=== PATIENT | female | born 1965 | race Caucasian/White ===

== ENCOUNTER 2017-08-13 05:39 | Emergency (ER) | payer SELFPAY ==
[~2017-08-13] VITALS: Ht 152.4 cm; Wt 59.0 kg
[~2017-08-13 05:39] MED LIST: ALBUTEROL SULF8.5 GM INH; AMOXICILLIN500 MG ORAL; ATIVAN0.5 MG ORAL; AZITHROMYCIN250 MG ORAL; CLARITIN10 M2 ORAL; IBUPROFEN600 MG ORAL; NKM; PEPCID20 MG ORAL; PROMETHAZINE-C118 M1 ORAL; RANITIDINE HCL150 MG ORAL; TYLENOL EXTRA500 MG ORAL; TYLENOL325 MG ORAL; ZOFRAN ODT4 MG ORAL
[2017-08-13] MEDS ORDERED: NKM (05:51)
--- NOTE | 2017-08-13 06:21 | Emergency Room Report ---
History of Present Illness General Chief Complaint: Upper Respiratory Illness Source: Patient (Cristela Lira M.D.) Present Illness HPI 52-year-old female presents with fever, chills, cough, vomiting, headache for 3 days. Cough is productive with clear phlegm. Patient is barely eating or drinking and feels very dehydrated. States that she has been vomiting a lot but will not quantify. Denies any abdominal pain or diarrhea.. No recent travel. did not get a flu shot this year. (Cristela Lira M.D.) Allergies: Coded Allergies: IBUPROFEN (Verified Allergy, Unknown, 08/13/17) Patient History Past Medical History: see triage record Past Surgical History: none Pertinent Family History: none Last Menstrual Period: jul Reviewed Nursing Documentation: PMH: Agreed, PSxH: Agreed (Cristela Lira M.D. ) Nursing Documentation-PMH Past Medical History: No Stated History (Cristela Lira M.D.) Review of Systems All Other Systems: negative except mentioned in HPI (Cristela Lira M.D.) Physical Exam Vital Signs Date Time Temp Pulse Resp B/P (MAP) Pulse Ox O2 Delivery O2 Flow Rate FiO2 08/13/17 05:50 100.7 85 20 111/62 98 Room Air 100.8 Sp02 EP Interpretation: reviewed, normal General Appearance: alert, GCS 15, moderate distress Head: normocephalic, atraumatic Eyes: bilateral eye normal inspection, bilateral eye PERRL, bilateral eye EOMI ENT: normal voice, dry mucus membranes Neck: normal inspection, full range of motion, supple, no meningismus Respiratory: normal inspection, lungs clear, normal breath sounds, no respiratory distress, no retraction, no wheezing, speaking full sentences, chest symmetrical Cardiovascular #1: normal inspection, regular rate, rhythm, normal capillary refill Cardiovascular #2: 2+ radial (R), 2+ radial (L) Gastrointestinal: non tender, soft, non-distended, no guarding, other - nontender thoughout abdomen Musculoskeletal: normal inspection, back normal, normal range of motion, non- tender Neurologic: normal inspection, alert, oriented x3, responsive, motor strength/ tone normal, sensory intact, normal gait, speech normal Psychiatric: normal inspection, judgement/insight normal, memory normal Skin: normal inspection, normal color, no rash, warm/dry, well hydrated, normal turgor (Cristela Lira M.D.) Medical Decision Making Diagnostic Impression: Primary Impression: Influenza A ER Course 52-year-old female p/w fever, chills, headache, cough DDX: Viral URI / pneumonia / UTI Plan: Labs, fluids, Zofran ER course: Pt stable in ED, remains nontoxic appearing, no sob. Tolerating PO Signed out patient to -Pending labs and pending final disposition Please note that this Emergency Department Report was dictated using [employer] science professor technology software, occasionally this can lead to erroneous entry secondary to interpretation by the dictation equipment Rhythm Strip EP Interpretation: Yes Rate: 77 Rhythm: NSR, no PVCs, no ectopy EKG Diagnostic Results EP Interpretation: Yes Rate: normal Rhythm: NSR ST Segments: No acute changes ASA given to patient: No (Cristela Lira M.D.) ER Course Hospital Course 52-year-old F presents to ED complaining of fever + bodyaches + cough Clinical course Patient initially seen and evaluated by Dr. Lira; please see her note for full history and physical labs - no leukocytosis, hb/hct stable, electrolytes ok, ua negative. influenza A + CXR - no acute infiltrate Discussed findings with patient. Patient appears nontoxic, stable vitals. Given Tamiflu here. Safe for discharge with outpatient therapy Diagnosis - influenza A Stable and discharged home with prescriptions for tamiflu, promethazine/codeine , tylenol. drink plenty of fluids. Instructed to followup with PMD. Return to ED if symptoms recur or worsen Labs Test 08/13/17 06:00 08/13/17 06:30 Urine Color Pale yellow Urine Appearance Clear Urine pH 8 (4.5-8.0) Urine Specific [place] 1.010 (1.005-1.035) Urine Protein 1+ (NEGATIVE) Urine Glucose (UA) Negative (NEGATIVE) Urine Ketones Negative (NEGATIVE) Urine Occult Blood 5+ (NEGATIVE) Urine Nitrite Negative (NEGATIVE) Urine Bilirubin Negative (NEGATIVE) Urine Urobilinogen 1 MG/DL (0.0-1.0) Urine Leukocyte Esterase 3+ (NEGATIVE) Urine RBC 20-30 /HPF (0 - 2) Urine WBC 5-10 /HPF (0 - 2) Urine Squamous Epithelial Cells Few /LPF (NONE/OCC) Urine Bacteria Few /HPF (NONE) White Blood Count 4.2 K/UL (4.8-10.8) Red Blood Count 4.36 M/UL (4.20-5.40) Hemoglobin 14.3 G/DL (12.0-16.0) Hematocrit 41.3 % (37.0-47.0) Mean Corpuscular Volume 95 FL (80-99) Mean Corpuscular Hemoglobin 32.7 PG (27.0-31.0) Mean Corpuscular Hemoglobin Concent 34.5 G/DL (32.0-36.0) Red Cell Distribution Width 11.2 % (11.6-14.8) Platelet Count 136 K/UL (150-450) Mean Platelet Volume 9.2 FL (6.5-10.1) Neutrophils (%) (Auto) 81.6 % (45.0-75.0) Lymphocytes (%) (Auto) 9.0 % (20.0-45.0) Monocytes (%) (Auto) 8.4 % (1.0-10.0) Eosinophils (%) (Auto) 0.4 % (0.0-3.0) Basophils (%) (Auto) 0.6 % (0.0-2.0) Sodium Level 135 MMOL/L (136-145) Potassium Level 3.6 MMOL/L (3.5-5.1) Chloride Level 102 MMOL/L (98-107) Carbon Dioxide Level 26 MMOL/L (21-32) Anion Gap 7 mmol/L (5-15) Blood Urea Nitrogen 6 mg/dL (7-18) Creatinine 0.8 MG/DL (0.55-1.30) Estimat Glomerular Filtration Rate > 60 mL/min (>60) Glucose Level 111 MG/DL (74-106) Lactic Acid Level 1.20 mmol/L (0.66-2.22) Calcium Level 9.1 MG/DL (8.5-10.1) Total Bilirubin 0.6 MG/DL (0.2-1.0) Aspartate Amino Transf (AST/SGOT) 34 U/L (15-37) Alanine Aminotransferase (ALT/SGPT) 31 U/L (12-78) Alkaline Phosphatase 51 U/L (46-116) Troponin I 0.000 ng/mL (0.000-0.056) Total Protein 7.1 G/DL (6.4-8.2) Albumin 3.7 G/DL (3.4-5.0) Globulin 3.4 g/dL Albumin/Globulin Ratio 1.1 (1.0-2.7) (BENNIE WILLS M.D.) Chest X-Ray Diagnostic Results Chest X-Ray Diagnostic Results : Chest X-Ray Ordered: Yes # of Views/Limited/Complete: 1 View Indication: Other - cough EP Interpretation: Yes Interpretation: no consolidation, no effusion, no pneumothorax, no acute cardiopulmonary disease Impression: No acute disease Electronically Signed by: Electronically signed by Bennie Wills MD (BENNIE WILLS M.D.) Last Vital Signs Date Time Temp Pulse Resp B/P (MAP) Pulse Ox O2 Delivery O2 Flow Rate FiO2 08/13/17 05:50 100.7 85 20 111/62 98 Room Air 100.8 (Cristela Lira M.D.) Status: improved (BENNIE WILLS M.D.) Disposition: HOME, SELF-CARE Condition: Stable Scripts Acetaminophen* (TYLENOL EXTRA STRENGTH*) 500 Mg Tablet 500 MG ORAL Q8H Y for Prn Headache/Temp > 101, #30 TAB 0 Refills Prov: BENNIE WILLS M.D. 08/13/17 Codeine/Promethazine Hcl* (PROMETHAZINE-CODEINE SYRUP*) 118 Ml Syrup 5 ML ORAL Q6H Y for For Cough, #118 ML 0 Refills Prov: BENNIE WILLS M.D. 08/13/17 Oseltamivir Phosphate (Tamiflu) 75 Mg Capsule 75 MG ORAL TWICE A DAY for 5 Days, CAP Prov: BENNIE WILLS M.D. 08/13/17 Cristela Lira M.D. Aug 13, 2017 06:21 BENNIE WILLS M.D. Aug 13, 2017 08:03
[2017-08-13 06:28] LABS: APPEARANCE,URINE CLEAR; BILIRUBIN, URINE NEGATIVE (NEGATIVE); COLOR,URINE PALE YELLOW; GLUCOSE, URINE (UA) NEGATIVE (NEGATIVE); KETONES,URINE NEGATIVE (NEGATIVE); LEUKOCYTE ESTERASE ,URINE 3+ (NEGATIVE); NITRITE,URINE NEGATIVE (NEGATIVE); PH,URINE 8 (4.5-8.0); PROTEIN,URINE 1+ (NEGATIVE); UROBILINOGEN,URINE 1 MG/DL (0.0-1.0)
[2017-08-13 07:06] LABS: BASOPHILS % (AUTO) 0.6 % (0.0-2.0); EOSINOPHILS % (AUTO) 0.4 % (0.0-3.0); HEMATOCRIT 41.3 % (37.0-47.0); HEMOGLOBIN 14.3 G/DL (12.0-16.0); MEAN CORPUSCULAR VOLUME 95 FL (80-99); MONOCYTES % (AUTO) 8.4 % (1.0-10.0); NEUTROPHILS % (AUTO) 81.6 % (45.0-75.0); PLATELET COUNT 136 K/UL (150-450); RED BLOOD COUNT 4.36 M/UL (4.20-5.40); RED CELL DISTRIBUTION WIDTH 11.2 % (11.6-14.8); WHITE BLOOD COUNT 4.2 K/UL (4.8-10.8)
[2017-08-13 07:17] LABS: ANION GAP 7 mmol/L (5-15); BLOOD UREA NITROGEN 6 mg/dL (7-18); CALCIUM 9.1 MG/DL (8.5-10.1); CARBON DIOXIDE 26 MMOL/L (21-32); CHLORIDE 102 MMOL/L (98-107); CREATININE 0.8 MG/DL (0.55-1.30); POTASSIUM 3.6 MMOL/L (3.5-5.1); SODIUM 135 MMOL/L (136-145)
[2017-08-13 07:21] LABS: ALANINE AMINOTRANSFERASE 31 U/L (12-78); ALBUMIN 3.7 G/DL (3.4-5.0); ALBUMIN/GLOBULIN RATIO 1.1 (1.0-2.7); ALKALINE PHOSPHATASE 51 U/L (46-116); ASPARTATE AMINO TRANSFERASE 34 U/L (15-37); BILIRUBIN,TOTAL 0.6 MG/DL (0.2-1.0)
[2017-08-13 07:44] VITALS: BP 96/44
[2017-08-13] MEDS ORDERED: Oseltamivir 75mg cap ORAL ONE (07:45)
[2017-08-13] MEDS ORDERED: TYLENOL EXTRA500 MG ORAL (07:50)
[2017-08-13] MEDS ORDERED: PROMETHAZINE-C118 M1 ORAL (07:50)
[2017-08-13] MEDS ORDERED: TAMIFLU75 MG ORAL (07:50)
[2017-08-13 08:03] VITALS: BP 96/44
[2017-08-13] MEDS ORDERED: Lidocaine 2% Visc 15ml soln ORAL ONE (08:15)
--- NOTE | 2017-08-13 10:45 | Diagnostic Imaging Report ---
Indication: Dyspnea Comparison: None A single view chest radiograph was obtained. Findings: Cardiomediastinal appearance is within normal limits for age. Pulmonary vascularity is appropriate. The diaphragmatic contour is smooth and costophrenic angles are sharp. No pleural effusions are identified. The bones are unremarkable. Impression: No acute findings
--- NOTE | 2017-08-25 16:59 | Cardiology Report ---
APPROVED REPORT EKG Measurement Heart [id number] Normal sinus rhythm Incomplete right bundle branch block Borderline ECG
== END 2017-08-13 08:02 | disposition home or self-care (01) ==
LOC: EMR 07:11
DX: J10.1 Influenza due to other identified influenza virus with other respiratory manifestations (principal); Z88.6 Allergy status to analgesic agent
CPT/HCPCS: 36415; 71045; 80053; 81003; 83605; 84484; 85025; 86710; 87040; 93005; 96361; 96374; 99284; J2405

== ENCOUNTER 2019-08-09 09:01 | Day surgery (SDC) | payer BC ==
[2019-08-09] VITALS (9 sets, daily range): BP systolic 96–118; BP diastolic 59–70
[~2019-08-09] VITALS: Ht 162.6 cm; Wt 63.5 kg
[~2019-08-09 09:01] MED LIST changes: +LR 1000ml 1,000 ML IVLG SCH; +TAMIFLU75 MG ORAL
[2019-08-09] MEDS ORDERED: LR 1000ml 1,000 ML IVLG SCH (10:08)
--- NOTE | 2019-08-09 10:10 | Anethesia Preoperative Eval ---
Anesthesia Pre-op PMH/ROS General Date of Evaluation: Aug 09, 2019 Time of Evaluation: 10:31 Anesthesiologist: ning ASA Score: ASA 2 Mallampati Score Class I : Soft palate, uvula, fauces, pillars visible Class II: Soft palate, uvula, fauces visible Class III: Soft palate, base of uvula visible Class IV: Only hard plate visible Mallampati Classification: Class II Surgeon: mahad Diagnosis: colon screening Surgical Procedure: colonoscopy Anesthesia History: none Family History: no anesthesia problems Allergies: Coded Allergies: IBUPROFEN (Verified Allergy, Unknown, 08/13/17) Medications: see eMAR Patient NPO?: Yes Anesthesia Pre-op Phys. Exam Physician Exam Last Vital Signs Date Time Temp Pulse Resp B/P (MAP) Pulse Ox O2 Delivery O2 Flow Rate FiO2 08/09/19 10:37 97.7 58 18 96/67 98 Room Air Constitutional: NAD Neurologic: CN 2-12 intact Cardiovascular: RRR Respiratory: CTA Gastrointestinal: S/NT/ND Airway Exam Mallampati Score: Class II MO: full Neck: flexible TMD: 2fb ROM: full Anesthesia Pre-op A/P Labs Labs Test 08/09/19 09:15 Urine HCG, Qualitative Negative (NEGATIVE) Urine Test Test 08/09/19 09:15 Urine HCG, Qualitative Pending Studies Pre-op Studies: EKG - sinus bradycardia Risk Assessment & Plan Assessment: asa2 Plan: mac Status Change Before Surgery: No Pre-Antibiotics Drug: Katie Martins MD Aug 09, 2019 10:10
[2019-08-09] MEDS ORDERED: fentaNYL 100 mcg/2 mL IV PRN (10:15)
[2019-08-09] MEDS ORDERED: DiphenhydrAMINE 50mg/ml Inj IVP PRN (10:15)
[2019-08-09] MEDS ORDERED: Midazolam 2mg/2ml Inj IVP PRN (10:15)
[2019-08-09] MEDS ORDERED: Atropine Inj 1mg/10ml Syr IV PRN (10:15)
--- NOTE | 2019-08-09 10:18 | Pre-Procedure Note/Attestation ---
Pre-Procedure Note/Attestation Complete Prior to Procedure Planned Procedure: not applicable Procedure Narrative: colonoscopy Indications for Procedure Pre-Operative Diagnosis: screening Attestation I attest that I discussed the nature of the procedure; its benefits; risks and complications; and alternatives (and the risks and benefits of such alternatives ), prior to the procedure, with the patient (or the patient's legal lead customer service representative). I attest that, if there was a reasonable possibility of needing a blood transfusion, the patient (or the patient's legal lead customer service representative) was given the [facility] standardized written summary, pursuant to the [place] Blood Safety Act ([place] Health and Safety Code # 1645, as amended). I attest that I re-evaluated the patient just prior to the surgery and that there has been no change in the patient's H&P, except as documented below: Jaime Cooley MD Aug 09, 2019 10:18
--- NOTE | 2019-08-09 10:19 | Short Stay Surgery H&P ---
History of Present Illness History of Present Illness Chief Complaint screening colon HPI Rita Durbin is a 54 year old female who was admitted on for Screening Patient History Allergies: Coded Allergies: IBUPROFEN (Verified Allergy, Unknown, 08/13/17) PAST MEDICAL HISTORY: (1) Anxiety (2) Gastritis (3) Bronchitis (4) Elevated liver enzymes Medication History Scheduled Albuterol Sulfate* (Albuterol Sulfate Mdi*), 2 PUFF INH Q4H Albuterol Sulfate* (Albuterol Sulfate Mdi*), 2 PUFF INH Q6H Amoxicillin* (Amoxil*), 500 MG ORAL THREE TIMES A DAY Azithromycin* (Zithromax*), 250 MG ORAL DAILY Famotidine (Pepcid), 20 MG ORAL DAILY Loratadine (Claritin), 10 MG ORAL DAILY Lorazepam* (Ativan*), 0.5 MG ORAL THREE TIMES A DAY No Known Medications* (NKM - No Known Medications*), 0 ., (Reported) No Known Medications* (NKM - No Known Medications*), 0 ., (Reported) Oseltamivir Phosphate (Tamiflu), 75 MG ORAL TWICE A DAY Ranitidine Hcl* (Zantac*), 150 MG ORAL TWICE A DAY Scheduled PRN Acetaminophen (Tylenol), 650 MG ORAL Q6H PRN for Prn Pain/Headache/Temp > 101 Acetaminophen* (Tylenol Extra Strength*), 500 MG ORAL Q8H PRN for Prn Headache/ Temp > 101 Acetaminophen* (Tylenol Extra Strength*), 500 MG ORAL Q8H PRN for Prn Headache/ Temp > 101 Codeine/Promethazine Hcl* (Promethazine-Codeine Syrup*), 5 ML ORAL Q4H PRN for For Cough Codeine/Promethazine Hcl* (Promethazine-Codeine Syrup*), 5 ML ORAL Q6H PRN for For Cough Ibuprofen* (Motrin*), 600 MG ORAL Q8H PRN for For Pain Ondansetron Odt* (Zofran Odt*), 4 MG ORAL Q6H PRN for Nausea & Vomiting Review of Systems Cardiovascular: Reports: no symptoms Respiratory: Reports: no symptoms Skeletal: Reports: no symptoms Gastrointestinal: Reports: gastro esophageal reflux disease Genitourinary: Reports: no symptoms Neurologic: Reports: no symptoms Endocrine: Reports: no symptoms Hematologic: Reports: no symptoms Physical Exam Labs Laboratory Tests Test 08/09/19 09:15 Urine HCG, Qualitative Negative (NEGATIVE) Skin: normal HENT: normal Heart: normal Lungs: normal Abdomen: normal Extremities: normal Plan Plan of Care colonoscopy Attestation Are the patient's medical conditions optimized for surgery? Attestation Response: yes Jaime Cooley MD Aug 09, 2019 10:19
[2019-08-09] MEDS ORDERED: Lidocaine 1% MPF 10mg/ml 5ml ONE (10:30)
[2019-08-09] MEDS ORDERED: LR 1000ml ONE (10:30)
[2019-08-09] MEDS ORDERED: Propofol 200mg/20ml IV ONE (10:30)
--- NOTE | 2019-08-09 10:58 | Endoscopy Procedure Note ---
Endoscopy Procedure Note General Indication for Procedure: screening Procedures Performed: colonoscopy Operative Findings/Diagnosis: hemorrhoids Specimen: none Pt Tolerated Procedure Well: Yes Estimated Blood Loss: none Anesthesia Anesthesiologist: moy Anesthesia: MAC Inserted Devices Implant(s) used?: No Quality Quality of Bowel Preparation: Good Did scope reach the cecum?: Yes Was there any complications?: No GI Core Measures 50 yrs or older w/o bx or poly: No 10yrs. F/U recommended: Yes If not recommended, why?: Above average risk 18 years or older w/prev. colo: No Jaime Cooley MD Aug 09, 2019 10:58
--- NOTE | 2019-08-09 12:19 | Immediate Post-Op Evaluation ---
Immediate Post-Op Evalulation Immediate Post-Op Evalulation Procedure: colonoscopy Date of Evaluation: Aug 09, 2019 Time of Evaluation: 11:12 IV Fluids: 300ml lr Blood Products: none Estimated Blood Loss: negligible Blood Pressure Systolic: 97 Blood Pressure Diastolic: 61 Pulse Rate: 54 Respiratory Rate: 18 O2 Sat by Pulse Oximetry: 100 Temperature (Fahrenheit): 97.7 Pain Score (1-10): 0 Nausea: No Vomiting: No Complications none Patient Status: awake, reacts, patent Hydration Status: adequate Drug: Katie Martins MD Aug 09, 2019 12:19
--- NOTE | 2019-08-09 12:20 | 48 Hour Post Anesthesia Eval ---
Post Anesthesia Evaluation Procedure: colonoscopy Date of Evaluation: Aug 09, 2019 Time of Evaluation: 11:14 Blood Pressure Systolic: 118 0: 70 Pulse Rate: 53 Respiratory Rate: 18 Temperature (Fahrenheit): 97.7 O2 Sat by Pulse Oximetry: 100 Airway: patent Nausea: No Vomiting: No Pain Intensity: 0 Hydration Status: adequate Cardiopulmonary Status: stable Mental Status/LOC: patient returned to baseline Post-Anesthesia Complications: none Follow-up care needed: N/A Katie Wild MD Aug 09, 2019 12:20
--- NOTE | 2019-08-09 14:45 | Procedure Note ---
DATE OF PROCEDURE: 08/09/2019 SURGEON: Jaime Cooley M.D. PROCEDURE: Colonoscopy. ANESTHESIA: Per Dr. Warner. INSTRUMENT: Olympus adult flexible colonoscope. INDICATIONS: Screening colonoscopy. REASON FOR PROCEDURE: The procedure, risks, benefits, and possible consequences, including hemorrhage, aspiration, perforation and infection, and alternative treatments, were explained to the patient/legal guardian by Dr. Jaime Cooley and the patient/legal guardian understood and accepted these risks. DESCRIPTION OF PROCEDURE: After informed consent was obtained and the patient was adequately sedated, first rectal examination was performed, which was positive for internal hemorrhoids. Then the scope was advanced from rectum into the cecum and then subsequently into terminal ileum. Quality of prep was good. The patient had evidence of diverticulosis scattered both in the right and left colon. No obvious mass, polyp, or any pathology was seen. Retroflexion of the rectum showed evidence of medium-sized nonbleeding internal hemorrhoids. The patient tolerated procedure very well without any complication. FINDINGS: 1. Normal colonoscopy examination up to the terminal ileum. 2. Scattered diverticulosis. 3. Internal hemorrhoids. RECOMMENDATIONS: 1. Treat for hemorrhoids if it becomes symptomatic. 2. Consider doing endoscopy if the patient has evidence of any epigastric or chronic GERD symptoms. 3. The patient to follow in the office for follow-up. 4. Repeat colonoscopy in 5 years. I want to thank, Dr. Jaime Euceda, for this kind referral. Jaime Cooley M.D. DR: Kristin JOB#: [id number] CC: Jaime Euceda M.D.
== END 2019-08-09 12:10 | disposition home or self-care (01) ==
LOC: GAS 09:01
DX: Z12.11 Encounter for screening for malignant neoplasm of colon (principal); K57.90 Diverticulosis of intestine, part unspecified, without perforation or abscess without bleeding; K64.8 Other hemorrhoids; F41.9 Anxiety disorder, unspecified; Z79.899 Other long term (current) drug therapy; K21.9 Gastro-esophageal reflux disease without esophagitis
CPT/HCPCS: 45378; 81025; 93005; J2704; J7120; 94003; 94150

== ENCOUNTER 2019-11-19 13:56 | Inpatient (IN) | payer BC ==
[~2019-11-19] VITALS: Ht 162.6 cm; Wt 65.5 kg
[~2019-11-19 13:56] MED LIST changes: -LR 1000ml 1,000 ML IVLG SCH
[2019-11-19 14:02] VITALS: BP 113/64
--- NOTE | 2019-11-19 14:02 | NUR ---
ED Nurse Note: Patient wheeled in to ED from home c/o severe low back pain x 4 days. [place] fall/ injury. Pt has hx of spinal disc problem. Pt is crying in pain. Facial grimacing noted. Stated that she is unable to feel her body. No SOB. VSS.
--- NOTE | 2019-11-19 14:16 | Emergency Room Report ---
History of Present Illness General Chief Complaint: Back Pain-No Injury Present Illness HPI 54 YO Female presents to the ED c/o 03/23 in severity progressive Lower back pain with lower abdominal cramping x4 days. Pt. was brought to ED by her son whom states she has been in bed for almost 4 days. Pt. reported she had subjective fever yesterday. Her son states she rarely even gets up to use the restroom and estimates once or twice. Pt. has been complaining of not being able to feel her body. and reports arms and legs. pt. can only walk and stand up with assistance. Pt. with hx of cervical disk disorder. she denies neck pain. She denies trauma or fall. She denies strenuous activities prior to onset of her symptoms. She denies dysuria or hematuria. Pt. reports intermittent paresthesias of the bilateral arms and legs. She denies incontinence of urine or bowels. She denies urinary retention. She denies nausea/vomiting. Reports decreased appetite. (Amelia Meier) Allergies: Coded Allergies: IBUPROFEN (Verified Allergy, Unknown, 08/13/17) COVID-19 Screening Contact w/high risk pt: No Recent Travel to affected area: No Experienced COVID-19 symptoms?: No COVID-19 Testing performed RIBBON TIER: No (Amelia Meier) Patient History Past Medical History: see triage record Past Surgical History: none Pertinent Family History: none Now: No Reviewed Nursing Documentation: PMH: Agreed; PSxH: Agreed (Amelia Meier) Nursing Documentation-PMH Hx Cardiac Problems: No Hx Cancer: No Hx Gastrointestinal Problems: Yes Hx Neurological Problems: No - disc, spine problem (Amelia Meier) Review of Systems All Other Systems: negative except mentioned in HPI (Amelia Meier) Physical Exam Vital Signs Date Time Temp Pulse Resp B/P (MAP) Pulse Ox O2 Delivery O2 Flow Rate FiO2 11/19/19 14:01 97.7 69 16 113/64 (80) 97 Room Air Sp02 EP Interpretation: reviewed, normal General Appearance: alert, GCS 15, non-toxic, moderate distress Head: normocephalic, atraumatic Eyes: bilateral eye normal inspection, bilateral eye PERRL ENT: hearing grossly normal, normal voice Neck: full range of motion Respiratory: lungs clear, normal breath sounds, speaking full sentences Cardiovascular #1: regular rate, rhythm Gastrointestinal: normal bowel sounds, soft, non-distended, no guarding, tenderness - TTP to lower abdomen diffusely. Rectal: deferred Musculoskeletal: normal range of motion, gait/station normal, tender - Lumbar paraspinal and midline TTP. Neurologic: alert, motor strength/tone normal, oriented x3, sensory intact, responsive, speech normal, grossly normal Psychiatric: judgement/insight normal Skin: no rash, normal color Lymphatic: no adenopathy (Amelia Meier) Medical Decision Making PA Attestation Dr. Conrad is my supervising Physician whom patient management has been discussed with. (Amelia Meier) Medicare Attestation Please refer to the initial note for the history exam and presentation CT imaging does show evidence of diverticulitis with what appears to be likely abscess formation patient will require IV antibiotics and surgical consultation with admission to the hospital (Andria Conrad DO) Diagnostic Impression: Primary Impression: Diverticulitis of intestine with abscess Qualified Codes: K57.20 - Diverticulitis of large intestine with perforation and abscess without bleeding ER Course 54 YO Female presents to the ED c/o 03/23 in severity progressive Lower back pain with lower abdominal cramping x4 days. Pt. was brought to ED by her son whom states she has been in bed for almost 4 days. Pt. reported she had subjective fever yesterday. Her son states she rarely even gets up to use the restroom and estimates once or twice. Pt. has been complaining of not being able to feel her body. and reports arms and legs. pt. can only walk and stand up with assistance. Pt. with hx of cervical disk disorder. she denies neck pain. She denies trauma or fall. She denies strenuous activities prior to onset of her symptoms. She denies dysuria or hematuria. Pt. reports intermittent paresthesias of the bilateral arms and legs. She denies incontinence of urine or bowels. She denies urinary retention. She denies nausea/vomiting. Reports decreased appetite. Ddx considered: Epidural abscess, fracture, sprain/strain, meningitis, spinal chord injury, sciatica, Pyelonephritis, renal calculi, intra-abdominal etiology just to name a few. Vital signs reviewed and are WNL during ED visit. Pt. is afebrile. Pt. does not demonstrate acute abdomen on exam. No saddle anesthesia noted, Pt. denies incontinence Neurovascular is intact ROM is limited due to pain ORDERS: -CBC:WNL -BMP: WNL -UA: Blood and RBc's, mild bacteria -CT Abd. Pelvis no contrast: "Diverticulitis with abscess formation " --- Per official radiology report- Please see report for specific details. INTERVENTIONS: - [place] 5mg PO -Lidoderm TP - Zosyn IV -Flagyl IV -Morphine 4mg IV pt. reports having acid reflux 1 hour s/p administration and reports this is a reaction she has w. morphine. - SURGICAL CONSULT: Dr. Gregory- contacted regarding pt. and CT imaging results. DISPOSITION: at this time pt. will be admitted to Dr. Polanco for diverticulitis and abscess formation Dr. Polanco agreed to admit the pt. and to continue pt. care management. Labs Test 11/19/19 14:20 11/19/19 14:28 Urine Color Pale yellow Urine Appearance Clear Urine pH 8 (4.5-8.0) Urine Specific [place] 1.010 (1.005-1.035) Urine Protein Negative (NEGATIVE) Urine Glucose (UA) Negative (NEGATIVE) Urine Ketones Negative (NEGATIVE) Urine Blood 3+ (NEGATIVE) Urine Nitrite Negative (NEGATIVE) Urine Bilirubin Negative (NEGATIVE) Urine Urobilinogen 1 MG/DL (0.0-1.0) Urine Leukocyte Esterase 1+ (NEGATIVE) Urine RBC 2-4 /HPF (0 - 2) Urine WBC 0-2 /HPF (0 - 2) Urine Squamous Epithelial Cells Few /LPF (NONE/OCC) Urine Bacteria Occasional /HPF (NONE) White Blood Count 8.7 K/UL (4.8-10.8) Red Blood Count 4.62 M/UL (4.20-5.40) Hemoglobin 14.6 G/DL (12.0-16.0) Hematocrit 41.1 % (37.0-47.0) Mean Corpuscular Volume 89 FL (80-99) Mean Corpuscular Hemoglobin 31.6 PG (27.0-31.0) Mean Corpuscular Hemoglobin Concent 35.5 G/DL (32.0-36.0) Red Cell Distribution Width 10.5 % (11.6-14.8) Platelet Count 192 K/UL (150-450) Mean Platelet Volume 8.8 FL (6.5-10.1) Neutrophils (%) (Auto) % (45.0-75.0) Lymphocytes (%) (Auto) % (20.0-45.0) Monocytes (%) (Auto) % (1.0-10.0) Eosinophils (%) (Auto) % (0.0-3.0) Basophils (%) (Auto) % (0.0-2.0) Differential Total Cells Counted 100 Neutrophils % (Manual) 76 % (45-75) Lymphocytes % (Manual) 16 % (20-45) Monocytes % (Manual) 7 % (1-10) Eosinophils % (Manual) 1 % (0-3) Basophils % (Manual) 0 % (0-2) Band Neutrophils 0 % (0-8) Platelet Estimate Adequate Platelet Morphology Normal Red Blood Cell Morphology Normal Sodium Level 138 MMOL/L (136-145) Potassium Level 3.9 MMOL/L (3.5-5.1) Chloride Level 101 MMOL/L (98-107) Carbon Dioxide Level 29 MMOL/L (21-32) Anion Gap 8 mmol/L (5-15) Blood Urea Nitrogen 11 mg/dL (7-18) Creatinine 0.7 MG/DL (0.55-1.30) Estimat Glomerular Filtration Rate > 60 mL/min (>60) Glucose Level 90 MG/DL (74-106) Calcium Level 9.3 MG/DL (8.5-10.1) (Amelia Meier) CT/MRI/US Diagnostic Results CT/MRI/US Diagnostic Results : Imaging Test Ordered: CT abdomen and Pelvis w/o Contrast Impression "Diverticulitis with abscess formation " --- Per official radiology report- Please see report for specific details. (Amelia Meier) Last Vital Signs Date Time Temp Pulse Resp B/P (MAP) Pulse Ox O2 Delivery O2 Flow Rate FiO2 11/19/19 14:02 97.7 69 16 113/64 97 Room Air (Amelia Meier) Disposition: ADMITTED INPATIENT Condition: Serious Physician Consult: Surgical: Dr. Gregory (Amelia Meier) Amelia Meier Nov 19, 2019 14:16 Andria Conrad DO Nov 19, 2019 16:09
--- NOTE | 2019-11-19 14:21 | NUR ---
ED Nurse Note: Urine collected and sent to lab.
[2019-11-19] MEDS ORDERED: HYDROcodone/Acetamin 5/325 tab ORAL ONE (14:30)
--- NOTE | 2019-11-19 14:30 | NUR ---
ED Nurse Note: IV line established. Blood specimen collected and sent to lab.
[2019-11-19 14:32] LABS: APPEARANCE,URINE CLEAR; BILIRUBIN, URINE NEGATIVE (NEGATIVE); COLOR,URINE PALE YELLOW; GLUCOSE, URINE (UA) NEGATIVE (NEGATIVE); KETONES,URINE NEGATIVE (NEGATIVE); LEUKOCYTE ESTERASE ,URINE 1+ (NEGATIVE); NITRITE,URINE NEGATIVE (NEGATIVE); PH,URINE 8 (4.5-8.0); PROTEIN,URINE NEGATIVE (NEGATIVE); UROBILINOGEN,URINE 1 MG/DL (0.0-1.0)
--- NOTE | 2019-11-19 14:40 | NUR ---
ED Nurse Note: Pt was taken to CT via [facility]. Accompanied by a tech.
[2019-11-19 14:47] LABS: HEMATOCRIT 41.1 % (37.0-47.0); HEMOGLOBIN 14.6 G/DL (12.0-16.0); MEAN CORPUSCULAR VOLUME 89 FL (80-99); PLATELET COUNT 192 K/UL (150-450); RED BLOOD COUNT 4.62 M/UL (4.20-5.40); RED CELL DISTRIBUTION WIDTH 10.5 % (11.6-14.8); WHITE BLOOD COUNT 8.7 K/UL (4.8-10.8)
--- NOTE | 2019-11-19 14:55 | NUR ---
ED Nurse Note: Pt returned from CT.
[2019-11-19 14:58] LABS: ANION GAP 8 mmol/L (5-15); BLOOD UREA NITROGEN 11 mg/dL (7-18); CALCIUM 9.3 MG/DL (8.5-10.1); CARBON DIOXIDE 29 MMOL/L (21-32); CHLORIDE 101 MMOL/L (98-107); CREATININE 0.7 MG/DL (0.55-1.30); POTASSIUM 3.9 MMOL/L (3.5-5.1); SODIUM 138 MMOL/L (136-145)
--- NOTE | 2019-11-19 15:58 | Diagnostic Imaging Report ---
EXAM: CT Abdomen and Pelvis Without Intravenous Contrast CLINICAL HISTORY: PAIN TECHNIQUE: Axial computed tomography images of the abdomen and pelvis without intravenous contrast. CTDI is 4.4 mGy and DLP is 326 mGy-cm. One or more of the following dose reduction techniques were used: automated exposure control, adjustment of the mA and/or kV according to patient size, use of iterative reconstruction technique. COMPARISON: No relevant prior studies available. FINDINGS: Lung bases: Left basilar atelectasis ABDOMEN: Liver: Unremarkable Gallbladder and bile ducts: No calcified stones. No ductal dilation. Pancreas: Unremarkable. Spleen: Unremarkable. Adrenals: Unremarkable. Kidneys and ureters: No renal calculi or obstructive changes. Stomach and bowel: Diverticulitis of the distal descending colon with surrounding inflammatory changes. No regular diverticulum measuring approximate 1 cm versus mottled collection with air and debris representing an abscess. No kaushik pneumoperitoneum. PELVIS: Appendix: Unremarkable appendix. Bladder: Unremarkable. Reproductive: Unremarkable. ABDOMEN and PELVIS: Intraperitoneal space: See above. Bones/joints: No acute fracture. Soft tissues: Unremarkable. Vasculature: Unremarkable. No abdominal aortic aneurysm. Lymph nodes: Small mesenteric and retroperitoneal nodes IMPRESSION: Diverticulitis of the distal descending colon with surrounding inflammatory changes. No regular diverticulum measuring approximate 1 cm versus mottled collection with air and debris representing an abscess. No kaushik pneumoperitoneum. <MYCVCSECTION> Communications: 11/19/19 16:10 Verify Receipt Verified receipt with MARITA Sanchez, given to Hardeep CASTILLO on 11/18 16:11 (-07:00)
[2019-11-19 16:00] VITALS: BP 118/70
[2019-11-19] MEDS ORDERED: VITAMIN D310 MCG ORAL (16:12)
[2019-11-19] MEDS ORDERED: Piperacillin/Tazobactam 2.25 GM in NS 110 ML IVPB ONE (16:15)
--- NOTE | 2019-11-19 16:20 | NUR ---
NURSE NOTES: Surgeon is at bedside. Plan of care discussed with patient. Orders entered by Dr. Gregory. Addendum: 11/19/19 at 1904 by ODALYS BOWDEN RN documented at wrong time, correct time: 18:20.
[2019-11-19] MEDS ORDERED: Morphine Sulfate 4mg/ml Inj (IV USE ONLY) ONE (16:21)
[2019-11-19] MEDS ORDERED: Morphine Sulfate 4mg/ml Inj (IV USE ONLY) IVP ONE (16:30)
--- NOTE | 2019-11-19 17:20 | NUR ---
ED Nurse Note: Pt c/o epigatsric pain, ERPA notified. Pepcid IV given as ordered.
--- NOTE | 2019-11-19 17:45 | NUR ---
ED Nurse Note: Report given to Lidia OCONNELL.
--- NOTE | 2019-11-19 18:00 | NUR ---
TRANSFER TO FLOOR: Patient transferred to [facility]. Report given to Lidia OCONNELL. Pt AAOx4, verbally responsive. Not in any distress. IV line on left AC 20g patent and intact. No skin issues. Med recon done. Swabs are sent. All belongings sent with the patient.
[2019-11-19 18:15] VITALS: BP 94/64
--- NOTE | 2019-11-19 18:15 | NUR ---
NURSE NOTES: Patient arrived on unit.Stable. C/o 8/10 pain in abdomen. Breathing is even and unlabored. Patient oriented to room, call light, and unit. Patient instructed to use call light for assistance, verbalized understanding. Patient's skin is c/d/i. All safety measures provided. All needs met at this time. WIll continue to monitor.
--- NOTE | 2019-11-19 18:26 | Consultation ---
History of Present Illness General Date patient seen: Nov 19, 2019 Reason for Hospitalization: Back Pain-No Injury Present Illness HPI this is a 54 year old female who presents to the ED at [facility] c/o 03/23 in severity progressive low back and lower abdominal cramping x4 days. Pt. was brought to ED by her son whom states she has been in bed for almost 4 days. subjective fevers. Her son states she rarely even gets up to use the restroom and estimates once or twice. Pt. has been complaining of not being able to feel her body. and reports arms and legs. pt. can only walk and stand up with assistance. Pt. with hx of cervical disk disorder. she denies neck pain. She denies trauma or fall. She denies strenuous activities prior to onset of her symptoms. She denies dysuria or hematuria. Pt. reports intermittent paresthesias of the bilateral arms and legs. She denies incontinence of urine or bowels. She denies urinary retention. She denies nausea/vomiting. Reports decreased appetite. CT noted diverticulitis. surgery called to evaluate and assist with care. Allergies: Coded Allergies: IBUPROFEN (Verified Allergy, Unknown, 08/13/17) COVID-19 Screening Contact w/high risk pt: No Recent Travel to affected area: No Experienced COVID-19 symptoms?: No Medication History Scheduled Albuterol Sulfate* (Albuterol Sulfate Mdi*), 2 PUFF INH Q4H Albuterol Sulfate* (Albuterol Sulfate Mdi*), 2 PUFF INH Q6H Amoxicillin* (Amoxil*), 500 MG ORAL THREE TIMES A DAY Azithromycin* (Zithromax*), 250 MG ORAL DAILY Famotidine (Pepcid), 20 MG ORAL DAILY Loratadine (Claritin), 10 MG ORAL DAILY Lorazepam* (Ativan*), 0.5 MG ORAL THREE TIMES A DAY No Known Medications* (NKM - No Known Medications*), 0 ., (Reported) No Known Medications* (NKM - No Known Medications*), 0 ., (Reported) Oseltamivir Phosphate (Tamiflu), 75 MG ORAL TWICE A DAY Ranitidine Hcl* (Zantac*), 150 MG ORAL TWICE A DAY Vitamin D (Vitamin D3), Unknown Dose ORAL DAILY, (Reported) Scheduled PRN Acetaminophen (Tylenol), 650 MG ORAL Q6H PRN for Prn Pain/Headache/Temp > 101 Acetaminophen* (Tylenol Extra Strength*), 500 MG ORAL Q8H PRN for Prn Headache/ Temp > 101 Acetaminophen* (Tylenol Extra Strength*), 500 MG ORAL Q8H PRN for Prn Headache/ Temp > 101 Codeine/Promethazine Hcl* (Promethazine-Codeine Syrup*), 5 ML ORAL Q4H PRN for For Cough Codeine/Promethazine Hcl* (Promethazine-Codeine Syrup*), 5 ML ORAL Q6H PRN for For Cough Ibuprofen (Motrin), 600 MG ORAL Q8H PRN for For Pain Ondansetron Odt* (Zofran Odt*), 4 MG ORAL Q6H PRN for Nausea & Vomiting Patient History Limited by: medical condition History Provided By: Patient, Medical Record, PMD Healthcare decision maker Resuscitation status Advanced Directive on File Past Medical/Surgical History Past Medical/Surgical History: (1) Pharyngitis (2) Viral syndrome (3) Leukocytopenia (4) Thrombocytopenia (5) Asthmatic bronchitis (6) Dyspepsia (7) Influenza A (8) Anxiety (9) Gastritis (10) Bronchitis (11) Elevated liver enzymes (12) Diverticulitis of intestine with abscess Review of Systems Review of Symptoms General ROS: no weight loss or fever Psychological ROS: no depression or mood changes, no memory loss Ophthalmic ROS: no visual changes or eye irritation ENT ROS: no nasal congestion, hearing loss, dizziness Allergy and Immunology ROS: no allergic symptoms or urticaria Hematological and Lymphatic ROS: no swollen glands, unusual bleeding or bruising Endocrine ROS: no polyuria, polydipsia, weight changes, temperature intolerance Respiratory ROS: no cough, shortness of breath, or wheezing Cardiovascular ROS: no chest pain or dyspnea on exertion Gastrointestinal ROS: abdominal pain, bright red blood in stool. Musculoskeletal ROS: no myalgias or arthralgias Neurological ROS: no TIA or stroke symptoms Dermatological ROS: no new or changing skin lesions, rashes or pruritis Physical Exam Physical Exam General appearance: alert, cooperative, no distress, appears stated age Head: Normocephalic, without obvious abnormality, atraumatic Eyes: conjunctivae/corneas clear. PERRL, EOM's intact. Fundi benign Throat: Lips, mucosa, and tongue normal. Teeth and gums normal Neck: supple, symmetrical, trachea midline, no adenopathy, thyroid: not enlarged, symmetric, no tenderness/mass/nodules, no carotid bruit and no JVD Lungs: clear to auscultation bilaterally Heart: regular rate and rhythm, S1, S2 normal, no murmur, click, rub or gallop Abdomen: soft,LLQ tender. Bowel sounds normal. No masses, no organomegaly Extremities: extremities normal, atraumatic, no cyanosis or edema Pulses: 2+ and symmetric Skin: Skin color, texture, turgor normal. No rashes or lesions Neurologic: Grossly normal Last 24 Hour Vital Signs Date Time Temp Pulse Resp B/P (MAP) Pulse Ox O2 Delivery O2 Flow Rate FiO2 11/19/19 18:00 97.7 71 19 121/74 99 Room Air 11/19/19 16:53 97.7 11/19/19 16:00 97.7 65 21 118/70 98 Room Air 11/19/19 15:01 97.7 11/19/19 14:02 97.7 69 16 113/64 97 Room Air 11/19/19 14:01 97.7 69 16 113/64 (80) 97 Room Air Laboratory Tests Test 11/19/19 14:20 11/19/19 14:28 Urine Color Pale yellow Urine Appearance Clear Urine pH 8 (4.5-8.0) Urine Specific [place] 1.010 (1.005-1.035) Urine Protein Negative (NEGATIVE) Urine Glucose (UA) Negative (NEGATIVE) Urine Ketones Negative (NEGATIVE) Urine Blood 3+ (NEGATIVE) H Urine Nitrite Negative (NEGATIVE) Urine Bilirubin Negative (NEGATIVE) Urine Urobilinogen 1 MG/DL (0.0-1.0) H Urine Leukocyte Esterase 1+ (NEGATIVE) H Urine RBC 2-4 /HPF (0 - 2) H Urine WBC 0-2 /HPF (0 - 2) Urine Squamous Epithelial Cells Few /LPF (NONE/OCC) Urine Bacteria Occasional /HPF (NONE) White Blood Count 8.7 K/UL (4.8-10.8) Red Blood Count 4.62 M/UL (4.20-5.40) Hemoglobin 14.6 G/DL (12.0-16.0) Hematocrit 41.1 % (37.0-47.0) Mean Corpuscular Volume 89 FL (80-99) Mean Corpuscular Hemoglobin 31.6 PG (27.0-31.0) H Mean Corpuscular Hemoglobin Concent 35.5 G/DL (32.0-36.0) Red Cell Distribution Width 10.5 % (11.6-14.8) L Platelet Count 192 K/UL (150-450) Mean Platelet Volume 8.8 FL (6.5-10.1) Neutrophils (%) (Auto) % (45.0-75.0) Lymphocytes (%) (Auto) % (20.0-45.0) Monocytes (%) (Auto) % (1.0-10.0) Eosinophils (%) (Auto) % (0.0-3.0) Basophils (%) (Auto) % (0.0-2.0) Differential Total Cells Counted 100 Neutrophils % (Manual) 76 % (45-75) H Lymphocytes % (Manual) 16 % (20-45) L Monocytes % (Manual) 7 % (1-10) Eosinophils % (Manual) 1 % (0-3) Basophils % (Manual) 0 % (0-2) Band Neutrophils 0 % (0-8) Platelet Estimate Adequate Platelet Morphology Normal Red Blood Cell Morphology Normal Sodium Level 138 MMOL/L (136-145) Potassium Level 3.9 MMOL/L (3.5-5.1) Chloride Level 101 MMOL/L (98-107) Carbon Dioxide Level 29 MMOL/L (21-32) Anion Gap 8 mmol/L (5-15) Blood Urea Nitrogen 11 mg/dL (7-18) Creatinine 0.7 MG/DL (0.55-1.30) Estimat Glomerular Filtration Rate > 60 mL/min (>60) Glucose Level 90 MG/DL (74-106) Calcium Level 9.3 MG/DL (8.5-10.1) Microbiology Date/Time Source Procedure Growth Status 11/19/19 17:52 Rectum Received Height (Feet): 5 Height (Inches): 4.00 Weight (Pounds): 145 Assessment/Plan Problem List: (1) Diverticulitis of intestine with abscess Assessment & Plan: 54 F abd pain , chronic back pain, nausea, emesis. LLQ pain 4 days. worsening labs noted CT as below acute diverticulitis. ?abscess small no acute surgical intervention at this time will monitor with serial abdominal exams npo bowel rest iv fluids iv abx am labs will follow with recs thank you ABDOMEN: Liver: Unremarkable Gallbladder and bile ducts: No calcified stones. No ductal dilation. Pancreas: Unremarkable. Spleen: Unremarkable. Adrenals: Unremarkable. Kidneys and ureters: No renal calculi or obstructive changes. Stomach and bowel: Diverticulitis of the distal descending colon with surrounding inflammatory changes. No regular diverticulum measuring approximate 1 cm versus mottled collection with air and debris representing an abscess. No kaushik pneumoperitoneum. PELVIS: Appendix: Unremarkable appendix. Bladder: Unremarkable. Reproductive: Unremarkable. ABDOMEN and PELVIS: Intraperitoneal space: See above. Bones/joints: No acute fracture. Soft tissues: Unremarkable. Vasculature: Unremarkable. No abdominal aortic aneurysm. Lymph nodes: Small mesenteric and retroperitoneal nodes IMPRESSION: Diverticulitis of the distal descending colon with surrounding inflammatory changes. No regular diverticulum measuring approximate 1 cm versus mottled collection with air and debris representing an abscess. No kaushik pneumoperitoneum. ICD Codes: K57.80 - Diverticulitis of intestine, part unspecified, with perforation and abscess without bleeding SNOMED: 730781618, [id number] Qualifiers: Qualified Codes: K57.20 - Diverticulitis of large intestine with perforation and abscess without bleeding Joseph Gregory Nov 19, 2019 18:26
[2019-11-19] MEDS ORDERED: Morphine Sulfate 4mg/ml Inj (IV USE ONLY) IVP PRN (18:30)
[2019-11-19] MEDS ORDERED: Morphine Sulfate 2mg/ml Inj(IV/IM USE ONLY) IVP PRN (18:30)
--- NOTE | 2019-11-19 19:36 | NUR ---
HAND-OFF: Report given to Shayla OCONNELL. Patient is stable.
--- NOTE | 2019-11-19 19:37 | NUR ---
NURSE NOTES: Received report from ANISH Nolasco. Patient in stable condition, sitting up in bed, alert and oriented. Bed in low position, locked, side rails up x2, call light within reach. IV in LAC intact and patent. Will start IVF presently per MD order. Will continue to monitor.
[2019-11-19 20:00] VITALS: BP 94/63
[2019-11-19] MEDS: Piperacillin/Tazobactam 3.375 GM in NS 110 ML IVPB SCH (22:04)
--- NOTE | 2019-11-19 22:14 | History & Physical ---
History and Physical History & Physicial 11/19/2019 CC; abd pain x 4 days Present Illness HPI 54 YO Female presents to the ED c/o 03/23 in severity progressive Lower back pain with lower abdominal cramping x4 days. Pt. was brought to ED by her son whom states she has been in bed for almost 4 days. Pt. reported she had subjective fever yesterday. Her son states she rarely even gets up to use the restroom and estimates once or twice. Pt. has been complaining of not being able to feel her body. and reports arms and legs. pt. can only walk and stand up with assistance. Pt. with hx of cervical disk disorder. she denies neck pain. She denies trauma or fall. She denies strenuous activities prior to onset of her symptoms. She denies dysuria or hematuria. Pt. reports intermittent paresthesias of the bilateral arms and legs. She denies incontinence of urine or bowels. She denies urinary retention. She denies nausea/vomiting. Reports decreased appetite. 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 Nursing Documentation-PMH Hx Cardiac Problems: No Hx Cancer: No Hx Gastrointestinal Problems: Yes Hx Neurological Problems: No - disc, spine problem Review of Systems All Other Systems: negative except mentioned in HPI Physical Exam Vital Signs Date Time Temp Pulse Resp B/P (MAP) Pulse Ox O2 Delivery O2 Flow Rate FiO2 11/19/19 14:01 97.7 69 16 113/64 (80) 97 Room Air Sp02 EP Interpretation: reviewed, normal General Appearance: alert, GCS 15, non-toxic, moderate distress Head: normocephalic, atraumatic Eyes: bilateral eye normal inspection, bilateral eye PERRL ENT: hearing grossly normal, normal voice Neck: full range of motion Respiratory: lungs clear, normal breath sounds, speaking full sentences Cardiovascular #1: regular rate, rhythm Gastrointestinal: normal bowel sounds, soft, non-distended, no guarding, + tenderness - TTP to lower abdomen diffusely. Rectal: deferred Musculoskeletal: normal range of motion, gait/station normal, tender - Lumbar paraspinal and midline TTP. Neurologic: alert, motor strength/tone normal, oriented x3, sensory intact, responsive, speech normal, grossly normal Psychiatric: judgement/insight normal Skin: no rash, normal color Labs Test 11/19/19 14:20 11/19/19 14:28 Urine Color Pale yellow Urine Appearance Clear Urine pH 8 (4.5-8.0) Urine Specific [place] 1.010 (1.005-1.035) Urine Protein Negative (NEGATIVE) Urine Glucose (UA) Negative (NEGATIVE) Urine Ketones Negative (NEGATIVE) Urine Blood 3+ (NEGATIVE) Urine Nitrite Negative (NEGATIVE) Urine Bilirubin Negative (NEGATIVE) Urine Urobilinogen 1 MG/DL (0.0-1.0) Urine Leukocyte Esterase 1+ (NEGATIVE) Urine RBC 2-4 /HPF (0 - 2) Urine WBC 0-2 /HPF (0 - 2) Urine Squamous Epithelial Cells Few /LPF (NONE/OCC) Urine Bacteria Occasional /HPF (NONE) White Blood Count 8.7 K/UL (4.8-10.8) Red Blood Count 4.62 M/UL (4.20-5.40) Hemoglobin 14.6 G/DL (12.0-16.0) Hematocrit 41.1 % (37.0-47.0) Mean Corpuscular Volume 89 FL (80-99) Mean Corpuscular Hemoglobin 31.6 PG (27.0-31.0) Mean Corpuscular Hemoglobin Concent 35.5 G/DL (32.0-36.0) Red Cell Distribution Width 10.5 % (11.6-14.8) Platelet Count 192 K/UL (150-450) Mean Platelet Volume 8.8 FL (6.5-10.1) Neutrophils (%) (Auto) % (45.0-75.0) Lymphocytes (%) (Auto) % (20.0-45.0) Monocytes (%) (Auto) % (1.0-10.0) Eosinophils (%) (Auto) % (0.0-3.0) Basophils (%) (Auto) % (0.0-2.0) Differential Total Cells Counted 100 Neutrophils % (Manual) 76 % (45-75) Lymphocytes % (Manual) 16 % (20-45) Monocytes % (Manual) 7 % (1-10) Eosinophils % (Manual) 1 % (0-3) Basophils % (Manual) 0 % (0-2) Band Neutrophils 0 % (0-8) Platelet Estimate Adequate Platelet Morphology Normal Red Blood Cell Morphology Normal Sodium Level 138 MMOL/L (136-145) Potassium Level 3.9 MMOL/L (3.5-5.1) Chloride Level 101 MMOL/L (98-107) Carbon Dioxide Level 29 MMOL/L (21-32) Anion Gap 8 mmol/L (5-15) Blood Urea Nitrogen 11 mg/dL (7-18) Creatinine 0.7 MG/DL (0.55-1.30) Estimat Glomerular Filtration Rate > 60 mL/min (>60) Glucose Level 90 MG/DL (74-106) Calcium Level 9.3 MG/DL (8.5-10.1) Assessment: diverticulitis with possible ? abscess abd pain hx cholecystectomy Nausea hx back pain PLAN: IVF IV abx per ID serial abd exam CT noted/reviewed GI/surgery f/u check LFTs pain control NPO antiemetics electrolyte replete as needed Masood Polanco MD Time of this note may NOT be the actual encounter time. Time spent today 75 minutes Internal Medicine [phone] Masood Polacno MD Nov 19, 2019 22:14
[2019-11-19] MEDS: Mylanta II UD 30ml ORAL PRN (23:34)
[2019-11-19] MEDS: Morphine Sulfate 2mg/ml Inj(IV/IM USE ONLY) IVP PRN (23:35)
[2019-11-20] VITALS: BP 108/61
[2019-11-20] MEDS: LORazepam 1mg tab ORAL PRN (02:11)
--- NOTE | 2019-11-20 03:11 | NUR ---
NURSE NOTES: Asleep, respirations unlabored.
[2019-11-20 05:00] VITALS: BP 98/55
--- NOTE | 2019-11-20 05:00 | NUR ---
NURSE NOTES: Patient states pain is 7/10 but refuses pain medication at this time. No more nausea or vomiting since last night. States has slept well. Encouraged to call to get out of bed and as needed.
[2019-11-20] MEDS: Piperacillin/Tazobactam 3.375 GM in NS 110 ML IVPB SCH ×3 (05:05→21:54)
--- NOTE | 2019-11-20 06:00 | NUR ---
NURSE NOTES: Awaiting to hear back from physician regarding VTE prophylaxis order. Patient ambulates to bathroom with assistance. Discussed last night and this morning importance of turning often in bed and doing leg exercises.
[2019-11-20 06:22] LABS: BASOPHILS % (AUTO) 0.4 % (0.0-2.0); EOSINOPHILS % (AUTO) 1.4 % (0.0-3.0); HEMATOCRIT 35.8 % (37.0-47.0); HEMOGLOBIN 12.8 G/DL (12.0-16.0); LYMPHOCYTES % (AUTO) 17.7 % (20.0-45.0); MEAN CORPUSCULAR VOLUME 89 FL (80-99); MONOCYTES % (AUTO) 7.9 % (1.0-10.0); NEUTROPHILS % (AUTO) 72.5 % (45.0-75.0); PLATELET COUNT 184 K/UL (150-450); RED BLOOD COUNT 4.02 M/UL (4.20-5.40); RED CELL DISTRIBUTION WIDTH 10.5 % (11.6-14.8); WHITE BLOOD COUNT 7.4 K/UL (4.8-10.8)
[2019-11-20 06:54] LABS: ALANINE AMINOTRANSFERASE 230 U/L (12-78); ALBUMIN/GLOBULIN RATIO 0.8 (1.0-2.7); ALKALINE PHOSPHATASE 181 U/L (46-116); ANION GAP 9 mmol/L (5-15); ASPARTATE AMINO TRANSFERASE 235 U/L (15-37); BILIRUBIN,TOTAL 0.8 MG/DL (0.2-1.0); BLOOD UREA NITROGEN 10 mg/dL (7-18); CARBON DIOXIDE 27 MMOL/L (21-32); CHLORIDE 104 MMOL/L (98-107); CHOLESTEROL 133 MG/DL (< 200); CREATININE 0.8 MG/DL (0.55-1.30); HDL CHOLESTEROL 50 MG/DL (40-60); POTASSIUM 3.8 MMOL/L (3.5-5.1); SODIUM 140 MMOL/L (136-145); TRIGLYCERIDES 66 MG/DL (30-150)
--- NOTE | 2019-11-20 06:58 | NUR ---
NURSE NOTES: Dr Cooley here to see patient. Requested clear liquid diet, placed order. Will call dietary.
--- NOTE | 2019-11-20 07:14 | General Progress Note ---
Assessment/Plan Problem List: (1) Diverticulitis of intestine with abscess ICD Codes: K57.80 - Diverticulitis of intestine, part unspecified, with perforation and abscess without bleeding SNOMED: 843743517, [id number] Qualifiers: Qualified Codes: K57.20 - Diverticulitis of large intestine with perforation and abscess without bleeding (2) Elevated liver enzymes ICD Codes: R74.8 - Abnormal levels of other serum enzymes SNOMED: 499414184 (3) Anxiety ICD Codes: F41.9 - Anxiety disorder, unspecified SNOMED: [id number] Assessment/Plan: abx ivf pain control has ad recent colonoscopy start clears repeat labs Subjective ROS Limited/Unobtainable: Yes Allergies: Coded Allergies: IBUPROFEN (Verified Allergy, Unknown, 08/13/17) Objective Last 24 Hour Vital Signs Date Time Temp Pulse Resp B/P (MAP) Pulse Ox O2 Delivery O2 Flow Rate FiO2 11/20/19 05:00 99.2 69 18 98/55 (69) 97 11/20/19 00:00 97.7 61 18 108/61 (77) 97 11/19/19 21:00 Room Air 11/19/19 20:00 98.5 63 20 94/63 (73) 97 11/19/19 18:18 Room Air 11/19/19 18:15 98.3 64 18 94/64 (74) 96 11/19/19 18:00 97.7 71 19 121/74 99 Room Air 11/19/19 16:53 97.7 11/19/19 16:00 97.7 65 21 118/70 98 Room Air 11/19/19 15:01 97.7 11/19/19 14:02 97.7 69 16 113/64 97 Room Air 11/19/19 14:01 97.7 69 16 113/64 (80) 97 Room Air Intake and Output 11/19/19 11/20/19 19:00 07:00 Intake Total 210 ml 900 ml Output Total 50 ml Balance 210 ml 850 ml Intake IV Total 210 ml 900 ml Output Emesis 50 ml # Voids 2 Laboratory Tests 11/19/19 14:20: Urine Color Pale yellow, Urine Appearance Clear, Urine pH 8, Urine Specific [place] 1.010, Urine Protein Negative, Urine Glucose (UA) Negative, Urine Ketones Negative, Urine Blood 3+H, Urine Nitrite Negative, Urine Bilirubin Negative, Urine Urobilinogen 1H, Urine Leukocyte Esterase 1+H, Urine RBC 2-4H, Urine WBC 0-2, Urine Squamous Epithelial Cells Few, Urine Bacteria Occasional 11/19/19 14:28: White Blood Count 8.7, Red Blood Count 4.62, Hemoglobin 14.6, Hematocrit 41.1, Mean Corpuscular Volume 89, Mean Corpuscular Hemoglobin 31.6H, Mean Corpuscular Hemoglobin Concent 35.5, Red Cell Distribution Width 10.5L, Platelet Count 192, Mean Platelet Volume 8.8, Neutrophils (%) (Auto) , Lymphocytes (%) (Auto) , Monocytes (%) (Auto) , Eosinophils (%) (Auto) , Basophils (%) (Auto) , Differential Total Cells Counted 100, Neutrophils % (Manual) 76H, Lymphocytes % (Manual) 16L, Monocytes % (Manual) 7, Eosinophils % (Manual) 1, Basophils % ( Manual) 0, Band Neutrophils 0, Platelet Estimate Adequate, Platelet Morphology Normal, Red Blood Cell Morphology Normal, Sodium Level 138, Potassium Level 3.9 , Chloride Level 101, Carbon Dioxide Level 29, Anion Gap 8, Blood Urea Nitrogen 11, Creatinine 0.7, Estimat Glomerular Filtration Rate > 60, Glucose Level 90, Calcium Level 9.3 11/20/19 04:45: White Blood Count 7.4, Red Blood Count 4.02L, Hemoglobin 12.8, Hematocrit 35.8L , Mean Corpuscular Volume 89, Mean Corpuscular Hemoglobin 31.9H, Mean Corpuscular Hemoglobin Concent 35.8, Red Cell Distribution Width 10.5L, Platelet Count 184, Mean Platelet Volume 9.2, Neutrophils (%) (Auto) 72.5, Lymphocytes (%) (Auto) 17.7L, Monocytes (%) (Auto) 7.9, Eosinophils (%) (Auto) 1.4, Basophils (%) (Auto) 0.4, Sodium Level 140, Potassium Level 3.8, Chloride Level 104, Carbon Dioxide Level 27, Anion Gap 9, Blood Urea Nitrogen 10, Creatinine 0.8, Estimat Glomerular Filtration Rate > 60, Glucose Level 111H, Calcium Level 8.0L, Erythrocyte Sedimentation Rate [Pending], Prothrombin Time 11.3, Prothromb Time International Ratio 1.0, Activated Partial Thromboplast Time 26, Hemoglobin A1c 6.2H, Phosphorus Level [Pending], Magnesium Level [ Pending], Total Bilirubin 0.8, Aspartate Amino Transf (AST/SGOT) 235H, Alanine Aminotransferase (ALT/SGPT) 230H, Alkaline Phosphatase 181H, C-Reactive Protein , Quantitative [Pending], Total Protein 6.7, Albumin 3.0L, Globulin 3.7, Albumin /Globulin Ratio 0.8L, Triglycerides Level 66, Cholesterol Level 133, LDL Cholesterol 68, HDL Cholesterol 50, Cholesterol/HDL Ratio 2.7L, Lipase [Pending] , Carcinoembryonic Antigen [Pending], Thyroid Stimulating Hormone (TSH) 3.958H Height (Feet): 5 Height (Inches): 4.00 Weight (Pounds): 145 General Appearance: alert EENT: normal ENT inspection Neck: supple Cardiovascular: normal rate Respiratory/Chest: lungs clear Abdomen: soft, hypoactive bowel sounds, tender Extremities: non-tender Jaime Cooley MD Nov 20, 2019 07:14
--- NOTE | 2019-11-20 07:30 | NUR ---
HAND-OFF: Report given to ANISH Bernal. Patient in stable condition. Assisted OOB to bathroom, voided without difficulty. Instructed to call to get out of bed. Patient verbalizes understanding.
--- NOTE | 2019-11-20 07:38 | NUR ---
NURSE NOTES: Dietary called, left message regarding clear liquid diet. Also note that patient eats Kosher.
[2019-11-20 07:41] LABS: PHOSPHORUS 3.7 MG/DL (2.5-4.9)
--- NOTE | 2019-11-20 07:57 | NUR ---
NURSE NOTES: Received report from Shayla OCONNELL. Patient is awake and oriented, in no apparent distress, reporting mild abdominal pain in left lower abdomen. IVF running per order. Patient on clear liquid diet. Fall precautions maintained. Side rails upx2, bed low and locked, call light within reach, bed alarm armed.
[2019-11-20 08:00] VITALS: BP 102/59
[2019-11-20] MEDS: Pantoprazole Inj IV SCH (09:05)
--- NOTE | 2019-11-20 09:19 | NUR ---
*-* INSURANCE *-* *-* NO INSURANCE INFORMATION IN THE BAR UNABLE TO SEND CLINICALS OR REVIEWS *-*
--- NOTE | 2019-11-20 11:31 | Internal Med Progress Note ---
Subjective Date of Service: Nov 20, 2019 Physician Name Masood Polanco Attending Physician Masood Polanco MD Current Medications Medications (Trade) Dose Ordered Sig/Marcus Route PRN Reason Start Time Stop Time Status Last Admin Dose Admin Acetaminophen (Tylenol) 650 mg Q4H PRN ORAL Temp >100.5 11/19/19 18:30 12/19/19 18:29 Al Hydroxide/Mg Hydroxide (Mylanta II) 30 ml Q6H PRN ORAL dyspepsia 11/19/19 18:30 12/19/19 18:29 11/19/19 23:34 Dextrose (Dextrose 50%) 25 ml Q30M PRN IV Hypoglycemia 11/19/19 18:30 02/17/20 18:29 Dextrose (Dextrose 50%) 50 ml Q30M PRN IV Hypoglycemia 11/19/19 18:30 02/17/20 18:29 Dextrose/ Electrolytes 1,000 ml @ 100 mls/hr Q10H IV 11/19/19 20:00 12/19/19 19:59 11/20/19 06:18 Diphenhydramine HCl (Benadryl) 25 mg Q6H PRN ORAL Itching/Pruritis 11/19/19 18:30 12/19/19 18:29 Lorazepam (Ativan) 1 mg Q4H PRN ORAL For Anxiety 11/19/19 18:30 11/26/19 18:29 11/20/19 02:11 Morphine Sulfate (Morphine Sulfate) 1 mg EVERY 3 HOURS PRN IVP Mild Pain (Pain Scale 1-3) 11/19/19 18:30 11/26/19 18:29 Morphine Sulfate (Morphine Sulfate) 2 mg EVERY 3 HOURS PRN IVP Moderate Pain (Pain Scale 4-6) 11/19/19 18:30 11/26/19 18:29 11/19/19 23:35 Morphine Sulfate (Morphine Sulfate) 4 mg EVERY 3 HOURS PRN IVP Severe Pain (Pain Scale 7-10) 11/19/19 18:30 11/26/19 18:29 Ondansetron HCl (Zofran) 4 mg Q6H PRN IVP Nausea & Vomiting 11/19/19 18:30 12/19/19 18:29 11/19/19 20:08 Pantoprazole (Protonix) 40 mg DAILY IV 11/20/19 09:00 12/20/19 08:59 11/20/19 09:05 Piperacillin Sod/ Tazobactam Sod 3.375 gm/Sodium Chloride 110 ml @ 27.5 mls/hr EVERY 8 HOURS IVPB 11/19/19 22:00 11/24/19 21:59 11/20/19 05:05 Temazepam (Restoril) 15 mg HSPRN PRN ORAL Insomnia 11/19/19 21:00 11/26/19 20:59 11/19/19 22:15 Allergies: Coded Allergies: IBUPROFEN (Verified Allergy, Unknown, 08/13/17) Constitutional: Reports: weakness HEENT: Reports: no symptoms Cardiovascular: Reports: no symptoms Respiratory: Reports: no symptoms Gastrointestinal/Abdominal: Reports: abdomen distended, abdominal pain, nausea , poor appetite Genitourinary: Reports: no symptoms Neurologic/Psychiatric: Reports: no symptoms All Systems: reviewed and negative except above Objective Last Vital Signs Date Time Temp Pulse Resp B/P (MAP) Pulse Ox O2 Delivery O2 Flow Rate FiO2 11/20/19 09:00 Room Air 11/20/19 08:00 98.4 69 16 102/59 (73) 11/20/19 05:00 97 General Appearance: mild distress EENT: pharynx normal Neck: supple Cardiovascular: normal rate, regular rhythm, no JVD Respiratory/Chest: lungs clear Abdomen: soft, hypoactive bowel sounds, guarding, tender Extremities: non-tender Edema: other - no edema Neurologic: oriented x 3, responsive Skin: warm/dry Laboratory Tests Test 11/19/19 14:20 11/19/19 14:28 11/20/19 04:45 Urine Color Pale yellow Urine Appearance Clear Urine pH 8 (4.5-8.0) Urine Specific [place] 1.010 (1.005-1.035) Urine Protein Negative (NEGATIVE) Urine Glucose (UA) Negative (NEGATIVE) Urine Ketones Negative (NEGATIVE) Urine Blood 3+ (NEGATIVE) H Urine Nitrite Negative (NEGATIVE) Urine Bilirubin Negative (NEGATIVE) Urine Urobilinogen 1 MG/DL (0.0-1.0) H Urine Leukocyte Esterase 1+ (NEGATIVE) H Urine RBC 2-4 /HPF (0 - 2) H Urine WBC 0-2 /HPF (0 - 2) Urine Squamous Epithelial Cells Few /LPF (NONE/OCC) Urine Bacteria Occasional /HPF (NONE) White Blood Count 8.7 K/UL (4.8-10.8) 7.4 K/UL (4.8-10.8) Red Blood Count 4.62 M/UL (4.20-5.40) 4.02 M/UL (4.20-5.40) L Hemoglobin 14.6 G/DL (12.0-16.0) 12.8 G/DL (12.0-16.0) Hematocrit 41.1 % (37.0-47.0) 35.8 % (37.0-47.0) L Mean Corpuscular Volume 89 FL (80-99) 89 FL (80-99) Mean Corpuscular Hemoglobin 31.6 PG (27.0-31.0) H 31.9 PG (27.0-31.0) H Mean Corpuscular Hemoglobin Concent 35.5 G/DL (32.0-36.0) 35.8 G/DL (32.0-36.0) Red Cell Distribution Width 10.5 % (11.6-14.8) L 10.5 % (11.6-14.8) L Platelet Count 192 K/UL (150-450) 184 K/UL (150-450) Mean Platelet Volume 8.8 FL (6.5-10.1) 9.2 FL (6.5-10.1) Neutrophils (%) (Auto) % (45.0-75.0) 72.5 % (45.0-75.0) Lymphocytes (%) (Auto) % (20.0-45.0) 17.7 % (20.0-45.0) L Monocytes (%) (Auto) % (1.0-10.0) 7.9 % (1.0-10.0) Eosinophils (%) (Auto) % (0.0-3.0) 1.4 % (0.0-3.0) Basophils (%) (Auto) % (0.0-2.0) 0.4 % (0.0-2.0) Differential Total Cells Counted 100 Neutrophils % (Manual) 76 % (45-75) H Lymphocytes % (Manual) 16 % (20-45) L Monocytes % (Manual) 7 % (1-10) Eosinophils % (Manual) 1 % (0-3) Basophils % (Manual) 0 % (0-2) Band Neutrophils 0 % (0-8) Platelet Estimate Adequate Platelet Morphology Normal Red Blood Cell Morphology Normal Sodium Level 138 MMOL/L (136-145) 140 MMOL/L (136-145) Potassium Level 3.9 MMOL/L (3.5-5.1) 3.8 MMOL/L (3.5-5.1) Chloride Level 101 MMOL/L (98-107) 104 MMOL/L (98-107) Carbon Dioxide Level 29 MMOL/L (21-32) 27 MMOL/L (21-32) Anion Gap 8 mmol/L (5-15) 9 mmol/L (5-15) Blood Urea Nitrogen 11 mg/dL (7-18) 10 mg/dL (7-18) Creatinine 0.7 MG/DL (0.55-1.30) 0.8 MG/DL (0.55-1.30) Estimat Glomerular Filtration Rate > 60 mL/min (>60) > 60 mL/min (>60) Glucose Level 90 MG/DL (74-106) 111 MG/DL (74-106) H Calcium Level 9.3 MG/DL (8.5-10.1) 8.0 MG/DL (8.5-10.1) L Erythrocyte Sedimentation Rate 69 MM/HR (0-30) H Prothrombin Time 11.3 SEC (9.30-11.50) Prothromb Time International Ratio 1.0 (0.9-1.1) Activated Partial Thromboplast Time 26 SEC (23-33) Hemoglobin A1c 6.2 % (4.3-6.0) H Phosphorus Level 3.7 MG/DL (2.5-4.9) Magnesium Level 2.1 MG/DL (1.8-2.4) Total Bilirubin 0.8 MG/DL (0.2-1.0) Aspartate Amino Transf (AST/SGOT) 235 U/L (15-37) H Alanine Aminotransferase (ALT/SGPT) 230 U/L (12-78) H Alkaline Phosphatase 181 U/L (46-116) H C-Reactive Protein, Quantitative 9.3 mg/dL (0.00-0.90) H Total Protein 6.7 G/DL (6.4-8.2) Albumin 3.0 G/DL (3.4-5.0) L Globulin 3.7 g/dL Albumin/Globulin Ratio 0.8 (1.0-2.7) L Triglycerides Level 66 MG/DL (30-150) Cholesterol Level 133 MG/DL (< 200) LDL Cholesterol 68 mg/dL (<100) HDL Cholesterol 50 MG/DL (40-60) Cholesterol/HDL Ratio 2.7 (3.3-4.4) L Lipase 170 U/L (73-393) Carcinoembryonic Antigen Pending Thyroid Stimulating Hormone (TSH) 3.958 uiU/mL (0.358-3.740) Microbiology Date/Time Source Procedure Growth Status 11/19/19 17:52 Rectum Received Intake and Output 11/19/19 11/20/19 19:00 07:00 Intake Total 210 ml 900 ml Output Total 50 ml Balance 210 ml 850 ml Intake IV Total 210 ml 900 ml Output Emesis 50 ml # Voids 2 Assessment/Plan Status: stable, unchanged Assessment/Plan diverticulitis with possible ? abscess abd pain elevated liver enzymes hx cholecystectomy elevated TSH rule out hypothyroidism Nausea PLAN; IVF IV abx per ID serial abd exam GI/surgery f/u trend LFTs pain control diet per GI started clear today antiemetics electrolyte replete as needed repeat TSH, check Free T4 Masood Polanco MD Time of this note may NOT be the actual encounter time. Time spent today 40 minutes Internal Medicine [phone] - Masood Polanco MD Nov 20, 2019 11:31
--- NOTE | 2019-11-20 11:33 | NUR ---
*-* INSURANCE *-* ALL AVAILABLE CLINICALS HAVE BEEN FAXED TO: [facility] AUTH#[id number] P:[phone] F:[phone]
--- NOTE | 2019-11-20 11:38 | Surgery Progress Note ---
Surgery Progress Note Subjective Additional Comments states she feels a bit better no n/v/f/c labs noted esr / crp elevated lft's elevated exam with focal LLQ tender Objective Last 24 Hour Vital Signs Date Time Temp Pulse Resp B/P (MAP) Pulse Ox O2 Delivery O2 Flow Rate FiO2 11/20/19 09:00 Room Air 11/20/19 08:00 98.4 69 16 102/59 (73) 11/20/19 05:00 99.2 69 18 98/55 (69) 97 11/20/19 00:00 97.7 61 18 108/61 (77) 97 11/19/19 21:00 Room Air 11/19/19 20:00 98.5 63 20 94/63 (73) 97 11/19/19 18:18 Room Air 11/19/19 18:15 98.3 64 18 94/64 (74) 96 11/19/19 18:00 97.7 71 19 121/74 99 Room Air 11/19/19 16:53 97.7 11/19/19 16:00 97.7 65 21 118/70 98 Room Air 11/19/19 15:01 97.7 11/19/19 14:02 97.7 69 16 113/64 97 Room Air 11/19/19 14:01 97.7 69 16 113/64 (80) 97 Room Air I&O Intake and Output 11/19/19 11/20/19 19:00 07:00 Intake Total 210 ml 900 ml Output Total 50 ml Balance 210 ml 850 ml Intake IV Total 210 ml 900 ml Output Emesis 50 ml # Voids 2 Dressing: other Wound: other Drains: other Cardiovascular: RSR Respiratory: decreased breath sounds Abdomen: soft, tenderness - LLQ focal , non-distended, decreased bowel sounds Extremities: no edema, no tenderness, no cyanosis Laboratory Tests Test 11/19/19 14:20 11/19/19 14:28 11/20/19 04:45 Urine Color Pale yellow Urine Appearance Clear Urine pH 8 (4.5-8.0) Urine Specific [place] 1.010 (1.005-1.035) Urine Protein Negative (NEGATIVE) Urine Glucose (UA) Negative (NEGATIVE) Urine Ketones Negative (NEGATIVE) Urine Blood 3+ (NEGATIVE) H Urine Nitrite Negative (NEGATIVE) Urine Bilirubin Negative (NEGATIVE) Urine Urobilinogen 1 MG/DL (0.0-1.0) H Urine Leukocyte Esterase 1+ (NEGATIVE) H Urine RBC 2-4 /HPF (0 - 2) H Urine WBC 0-2 /HPF (0 - 2) Urine Squamous Epithelial Cells Few /LPF (NONE/OCC) Urine Bacteria Occasional /HPF (NONE) White Blood Count 8.7 K/UL (4.8-10.8) 7.4 K/UL (4.8-10.8) Red Blood Count 4.62 M/UL (4.20-5.40) 4.02 M/UL (4.20-5.40) L Hemoglobin 14.6 G/DL (12.0-16.0) 12.8 G/DL (12.0-16.0) Hematocrit 41.1 % (37.0-47.0) 35.8 % (37.0-47.0) L Mean Corpuscular Volume 89 FL (80-99) 89 FL (80-99) Mean Corpuscular Hemoglobin 31.6 PG (27.0-31.0) H 31.9 PG (27.0-31.0) H Mean Corpuscular Hemoglobin Concent 35.5 G/DL (32.0-36.0) 35.8 G/DL (32.0-36.0) Red Cell Distribution Width 10.5 % (11.6-14.8) L 10.5 % (11.6-14.8) L Platelet Count 192 K/UL (150-450) 184 K/UL (150-450) Mean Platelet Volume 8.8 FL (6.5-10.1) 9.2 FL (6.5-10.1) Neutrophils (%) (Auto) % (45.0-75.0) 72.5 % (45.0-75.0) Lymphocytes (%) (Auto) % (20.0-45.0) 17.7 % (20.0-45.0) L Monocytes (%) (Auto) % (1.0-10.0) 7.9 % (1.0-10.0) Eosinophils (%) (Auto) % (0.0-3.0) 1.4 % (0.0-3.0) Basophils (%) (Auto) % (0.0-2.0) 0.4 % (0.0-2.0) Differential Total Cells Counted 100 Neutrophils % (Manual) 76 % (45-75) H Lymphocytes % (Manual) 16 % (20-45) L Monocytes % (Manual) 7 % (1-10) Eosinophils % (Manual) 1 % (0-3) Basophils % (Manual) 0 % (0-2) Band Neutrophils 0 % (0-8) Platelet Estimate Adequate Platelet Morphology Normal Red Blood Cell Morphology Normal Sodium Level 138 MMOL/L (136-145) 140 MMOL/L (136-145) Potassium Level 3.9 MMOL/L (3.5-5.1) 3.8 MMOL/L (3.5-5.1) Chloride Level 101 MMOL/L (98-107) 104 MMOL/L (98-107) Carbon Dioxide Level 29 MMOL/L (21-32) 27 MMOL/L (21-32) Anion Gap 8 mmol/L (5-15) 9 mmol/L (5-15) Blood Urea Nitrogen 11 mg/dL (7-18) 10 mg/dL (7-18) Creatinine 0.7 MG/DL (0.55-1.30) 0.8 MG/DL (0.55-1.30) Estimat Glomerular Filtration Rate > 60 mL/min (>60) > 60 mL/min (>60) Glucose Level 90 MG/DL (74-106) 111 MG/DL (74-106) H Calcium Level 9.3 MG/DL (8.5-10.1) 8.0 MG/DL (8.5-10.1) L Erythrocyte Sedimentation Rate 69 MM/HR (0-30) H Prothrombin Time 11.3 SEC (9.30-11.50) Prothromb Time International Ratio 1.0 (0.9-1.1) Activated Partial Thromboplast Time 26 SEC (23-33) Hemoglobin A1c 6.2 % (4.3-6.0) H Phosphorus Level 3.7 MG/DL (2.5-4.9) Magnesium Level 2.1 MG/DL (1.8-2.4) Total Bilirubin 0.8 MG/DL (0.2-1.0) Aspartate Amino Transf (AST/SGOT) 235 U/L (15-37) H Alanine Aminotransferase (ALT/SGPT) 230 U/L (12-78) H Alkaline Phosphatase 181 U/L (46-116) H C-Reactive Protein, Quantitative 9.3 mg/dL (0.00-0.90) H Total Protein 6.7 G/DL (6.4-8.2) Albumin 3.0 G/DL (3.4-5.0) L Globulin 3.7 g/dL Albumin/Globulin Ratio 0.8 (1.0-2.7) L Triglycerides Level 66 MG/DL (30-150) Cholesterol Level 133 MG/DL (< 200) LDL Cholesterol 68 mg/dL (<100) HDL Cholesterol 50 MG/DL (40-60) Cholesterol/HDL Ratio 2.7 (3.3-4.4) L Lipase 170 U/L (73-393) Carcinoembryonic Antigen Pending Thyroid Stimulating Hormone (TSH) 3.958 uiU/mL (0.358-3.740) Plan Problems: (1) Diverticulitis of intestine with abscess Assessment & Plan: 54 F abd pain , chronic back pain, nausea, emesis. LLQ pain 4 days. worsening labs noted CT as below acute diverticulitis. 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 No ductal dilation. Pancreas: Unremarkable. Spleen: Unremarkable. Adrenals: Unremarkable. Kidneys and ureters: No renal calculi or obstructive changes. Stomach and bowel: Diverticulitis of the distal descending colon with surrounding inflammatory changes. No regular diverticulum measuring approximate 1 cm versus mottled collection with air and debris representing an abscess. No kaushik pneumoperitoneum. PELVIS: Appendix: Unremarkable appendix. Bladder: Unremarkable. Reproductive: Unremarkable. ABDOMEN and PELVIS: Intraperitoneal space: See above. Bones/joints: No acute fracture. Soft tissues: Unremarkable. Vasculature: Unremarkable. No abdominal aortic aneurysm. Lymph nodes: Small mesenteric and retroperitoneal nodes IMPRESSION: Diverticulitis of the distal descending colon with surrounding inflammatory changes. No regular diverticulum measuring approximate 1 cm versus mottled collection with air and debris representing an abscess. No kaushik pneumoperitoneum. Joseph Gregory Nov 20, 2019 11:38
[2019-11-20 12:00] VITALS: BP 91/55
--- NOTE | 2019-11-20 12:11 | NUR ---
INTERQUAL CRITERIA MET
--- NOTE | 2019-11-20 13:16 | Infectious Diseases Prog Note ---
Assessment/Plan Assessment/Plan Full consult dictated; A) 1) acute diverticulitis 2) ? small abscess 3) abdominal meza P) 1) iv zosyn 2) surgery f/u - no surgical intervention at this time 3) will follow 4) thank you Subjective Allergies: Coded Allergies: IBUPROFEN (Verified Allergy, Unknown, 08/13/17) Objective Vital Signs Last 24 Hour Vital Signs Date Time Temp Pulse Resp B/P (MAP) Pulse Ox O2 Delivery O2 Flow Rate FiO2 11/20/19 12:00 98.0 69 16 91/55 (67) 96 11/20/19 09:00 Room Air 11/20/19 08:00 98.4 69 16 102/59 (73) 96 11/20/19 05:00 99.2 69 18 98/55 (69) 97 11/20/19 00:00 97.7 61 18 108/61 (77) 97 11/19/19 21:00 Room Air 11/19/19 20:00 98.5 63 20 94/63 (73) 97 11/19/19 18:18 Room Air 11/19/19 18:15 98.3 64 18 94/64 (74) 96 11/19/19 18:00 97.7 71 19 121/74 99 Room Air 11/19/19 16:53 97.7 11/19/19 16:00 97.7 65 21 118/70 98 Room Air 11/19/19 15:01 97.7 11/19/19 14:02 97.7 69 16 113/64 97 Room Air 11/19/19 14:01 97.7 69 16 113/64 (80) 97 Room Air Height (Feet): 5 Height (Inches): 4.00 Weight (Pounds): 145 Microbiology Date/Time Source Procedure Growth Status 11/19/19 17:52 Rectum Received Laboratory Tests Test 11/19/19 14:20 11/19/19 14:28 11/20/19 04:45 Urine Color Pale yellow Urine Appearance Clear Urine pH 8 (4.5-8.0) Urine Specific [place] 1.010 (1.005-1.035) Urine Protein Negative (NEGATIVE) Urine Glucose (UA) Negative (NEGATIVE) Urine Ketones Negative (NEGATIVE) Urine Blood 3+ (NEGATIVE) H Urine Nitrite Negative (NEGATIVE) Urine Bilirubin Negative (NEGATIVE) Urine Urobilinogen 1 MG/DL (0.0-1.0) H Urine Leukocyte Esterase 1+ (NEGATIVE) H Urine RBC 2-4 /HPF (0 - 2) H Urine WBC 0-2 /HPF (0 - 2) Urine Squamous Epithelial Cells Few /LPF (NONE/OCC) Urine Bacteria Occasional /HPF (NONE) White Blood Count 8.7 K/UL (4.8-10.8) 7.4 K/UL (4.8-10.8) Red Blood Count 4.62 M/UL (4.20-5.40) 4.02 M/UL (4.20-5.40) L Hemoglobin 14.6 G/DL (12.0-16.0) 12.8 G/DL (12.0-16.0) Hematocrit 41.1 % (37.0-47.0) 35.8 % (37.0-47.0) L Mean Corpuscular Volume 89 FL (80-99) 89 FL (80-99) Mean Corpuscular Hemoglobin 31.6 PG (27.0-31.0) H 31.9 PG (27.0-31.0) H Mean Corpuscular Hemoglobin Concent 35.5 G/DL (32.0-36.0) 35.8 G/DL (32.0-36.0) Red Cell Distribution Width 10.5 % (11.6-14.8) L 10.5 % (11.6-14.8) L Platelet Count 192 K/UL (150-450) 184 K/UL (150-450) Mean Platelet Volume 8.8 FL (6.5-10.1) 9.2 FL (6.5-10.1) Neutrophils (%) (Auto) % (45.0-75.0) 72.5 % (45.0-75.0) Lymphocytes (%) (Auto) % (20.0-45.0) 17.7 % (20.0-45.0) L Monocytes (%) (Auto) % (1.0-10.0) 7.9 % (1.0-10.0) Eosinophils (%) (Auto) % (0.0-3.0) 1.4 % (0.0-3.0) Basophils (%) (Auto) % (0.0-2.0) 0.4 % (0.0-2.0) Differential Total Cells Counted 100 Neutrophils % (Manual) 76 % (45-75) H Lymphocytes % (Manual) 16 % (20-45) L Monocytes % (Manual) 7 % (1-10) Eosinophils % (Manual) 1 % (0-3) Basophils % (Manual) 0 % (0-2) Band Neutrophils 0 % (0-8) Platelet Estimate Adequate Platelet Morphology Normal Red Blood Cell Morphology Normal Sodium Level 138 MMOL/L (136-145) 140 MMOL/L (136-145) Potassium Level 3.9 MMOL/L (3.5-5.1) 3.8 MMOL/L (3.5-5.1) Chloride Level 101 MMOL/L (98-107) 104 MMOL/L (98-107) Carbon Dioxide Level 29 MMOL/L (21-32) 27 MMOL/L (21-32) Anion Gap 8 mmol/L (5-15) 9 mmol/L (5-15) Blood Urea Nitrogen 11 mg/dL (7-18) 10 mg/dL (7-18) Creatinine 0.7 MG/DL (0.55-1.30) 0.8 MG/DL (0.55-1.30) Estimat Glomerular Filtration Rate > 60 mL/min (>60) > 60 mL/min (>60) Glucose Level 90 MG/DL (74-106) 111 MG/DL (74-106) H Calcium Level 9.3 MG/DL (8.5-10.1) 8.0 MG/DL (8.5-10.1) L Erythrocyte Sedimentation Rate 69 MM/HR (0-30) H Prothrombin Time 11.3 SEC (9.30-11.50) Prothromb Time International Ratio 1.0 (0.9-1.1) Activated Partial Thromboplast Time 26 SEC (23-33) Hemoglobin A1c 6.2 % (4.3-6.0) H Phosphorus Level 3.7 MG/DL (2.5-4.9) Magnesium Level 2.1 MG/DL (1.8-2.4) Total Bilirubin 0.8 MG/DL (0.2-1.0) Aspartate Amino Transf (AST/SGOT) 235 U/L (15-37) H Alanine Aminotransferase (ALT/SGPT) 230 U/L (12-78) H Alkaline Phosphatase 181 U/L (46-116) H C-Reactive Protein, Quantitative 9.3 mg/dL (0.00-0.90) H Total Protein 6.7 G/DL (6.4-8.2) Albumin 3.0 G/DL (3.4-5.0) L Globulin 3.7 g/dL Albumin/Globulin Ratio 0.8 (1.0-2.7) L Triglycerides Level 66 MG/DL (30-150) Cholesterol Level 133 MG/DL (< 200) LDL Cholesterol 68 mg/dL (<100) HDL Cholesterol 50 MG/DL (40-60) Cholesterol/HDL Ratio 2.7 (3.3-4.4) L Lipase 170 U/L (73-393) Carcinoembryonic Antigen Pending Thyroid Stimulating Hormone (TSH) 3.958 uiU/mL (0.358-3.740) Current Medications Medications (Trade) Dose Ordered Sig/Marcus Route PRN Reason Start Time Stop Time Status Last Admin Dose Admin Acetaminophen (Tylenol) 650 mg Q4H PRN ORAL Temp >100.5 11/19/19 18:30 12/19/19 18:29 Al Hydroxide/Mg Hydroxide (Mylanta II) 30 ml Q6H PRN ORAL dyspepsia 11/19/19 18:30 12/19/19 18:29 11/19/19 23:34 Dextrose (Dextrose 50%) 25 ml Q30M PRN IV Hypoglycemia 11/19/19 18:30 02/17/20 18:29 Dextrose (Dextrose 50%) 50 ml Q30M PRN IV Hypoglycemia 11/19/19 18:30 02/17/20 18:29 Dextrose/ Electrolytes 1,000 ml @ 100 mls/hr Q10H IV 11/19/19 20:00 12/19/19 19:59 11/20/19 06:18 Diphenhydramine HCl (Benadryl) 25 mg Q6H PRN ORAL Itching/Pruritis 11/19/19 18:30 12/19/19 18:29 Lorazepam (Ativan) 1 mg Q4H PRN ORAL For Anxiety 11/19/19 18:30 11/26/19 18:29 11/20/19 02:11 Morphine Sulfate (Morphine Sulfate) 1 mg EVERY 3 HOURS PRN IVP Mild Pain (Pain Scale 1-3) 11/19/19 18:30 11/26/19 18:29 Morphine Sulfate (Morphine Sulfate) 2 mg EVERY 3 HOURS PRN IVP Moderate Pain (Pain Scale 4-6) 11/19/19 18:30 11/26/19 18:29 11/19/19 23:35 Morphine Sulfate (Morphine Sulfate) 4 mg EVERY 3 HOURS PRN IVP Severe Pain (Pain Scale 7-10) 11/19/19 18:30 11/26/19 18:29 Ondansetron HCl (Zofran) 4 mg Q6H PRN IVP Nausea & Vomiting 11/19/19 18:30 12/19/19 18:29 11/19/19 20:08 Pantoprazole (Protonix) 40 mg DAILY IV 11/20/19 09:00 12/20/19 08:59 11/20/19 09:05 Piperacillin Sod/ Tazobactam Sod 3.375 gm/Sodium Chloride 110 ml @ 27.5 mls/hr EVERY 8 HOURS IVPB 11/19/19 22:00 11/24/19 21:59 11/20/19 05:05 Temazepam (Restoril) 15 mg HSPRN PRN ORAL Insomnia 11/19/19 21:00 11/26/19 20:59 11/19/19 22:15 Annemarie Zavala MD Nov 20, 2019 13:16
[2019-11-20 16:00] VITALS: BP 92/50
[2019-11-20] MEDS ORDERED: NS 500ML ONE (16:19)
[2019-11-20] MEDS ORDERED: Tubing IV Secondary IV ONE (16:19)
--- NOTE | 2019-11-20 16:41 | NUR ---
CASE MANAGEMENT: REVIEW 54 YEAR OLD FEMALE PRESENTED TO ED FROM HOME CC: SEVERE LOW BACK PAIN x4 DAYS SI: ACUTE DIVERTICULITIS T 97.7 HR 65 RR 21 BP 113/64 SAT 97% ROOM AIR NEUTROPHILS [address] ABD -- DIVERTICULITIS OF THE DISTAL DESCENDING COLON IS: MORPHINE IV X1 ZOSYN IV X1 FLAGYL IV X1 PATIENT ADMITTED TO MED/SURG UNIT 11/19/2019 DCP: PATIENT IS FROM HOME
--- NOTE | 2019-11-20 19:13 | NUR ---
HAND-OFF: Report given to Shayla OCONNELL.
--- NOTE | 2019-11-20 19:15 | NUR ---
NURSE NOTES: Received report from ANISH Bernal. Rounds done. Patient resting in bed. Alert, oriented. IV in LAC infusing IVF and Zosyn, positional, IV pump beeping often. Per report, patient refused other IV earlier in the day. Will attempt during this shift. Patient is NPO, no nausea, no vomiting at this time. Bed in low position, locked, side rails up x2, call light within reach. Will continue to monitor.
[2019-11-20 20:00] VITALS: BP 98/59
[2019-11-20] MEDS: Morphine Sulfate 2mg/ml Inj(IV/IM USE ONLY) IVP PRN (20:13)
--- NOTE | 2019-11-20 20:15 | NUR ---
NURSE NOTES: Patient c/o pain 8/10, abdominal cramping and lower back pain. Given IVP med. Also c/o heartburn. Patient feels anxious, encouraged verbalization of feelings. Will continue assessing. Suggested sleeping pill later on tonight, patient assents.
[2019-11-20] MEDS: Mylanta II UD 30ml ORAL PRN (20:30)
--- NOTE | 2019-11-20 22:50 | NUR ---
NURSE NOTES: Patient appears relaxed, watching TV. No nausea, no vomiting, pain controlled. Earlier in the evening was able to walk to bathroom with assistance, voided without difficulty. Encouraged to call as needed.
[2019-11-21] VITALS: BP 96/48
--- NOTE | 2019-11-21 02:45 | NUR ---
NURSE NOTES: Patient asleep.
[2019-11-21 04:00] VITALS: BP 96/59
[2019-11-21] MEDS: Piperacillin/Tazobactam 3.375 GM in NS 110 ML IVPB SCH ×3 (05:27→21:33)
[2019-11-21 05:53] LABS: EOSINOPHILS % (AUTO) 2.5 % (0.0-3.0); HEMATOCRIT 33.4 % (37.0-47.0); HEMOGLOBIN 11.6 G/DL (12.0-16.0); LYMPHOCYTES % (AUTO) 31.6 % (20.0-45.0); MEAN CORPUSCULAR VOLUME 90 FL (80-99); MONOCYTES % (AUTO) 10.1 % (1.0-10.0); NEUTROPHILS % (AUTO) 54.8 % (45.0-75.0); PLATELET COUNT 152 K/UL (150-450); RED CELL DISTRIBUTION WIDTH 10.8 % (11.6-14.8); WHITE BLOOD COUNT 4.7 K/UL (4.8-10.8)
[2019-11-21 06:15] LABS: ALANINE AMINOTRANSFERASE 165 U/L (12-78); ALBUMIN 2.6 G/DL (3.4-5.0); ALBUMIN/GLOBULIN RATIO 0.7 (1.0-2.7); ALKALINE PHOSPHATASE 194 U/L (46-116); ANION GAP 6 mmol/L (5-15); ASPARTATE AMINO TRANSFERASE 128 U/L (15-37); BILIRUBIN,TOTAL 0.9 MG/DL (0.2-1.0); BLOOD UREA NITROGEN 6 mg/dL (7-18); CALCIUM 7.9 MG/DL (8.5-10.1); CARBON DIOXIDE 28 MMOL/L (21-32); CHLORIDE 107 MMOL/L (98-107); CREATININE 0.7 MG/DL (0.55-1.30); POTASSIUM 4.5 MMOL/L (3.5-5.1); SODIUM 141 MMOL/L (136-145)
[2019-11-21] MEDS: Morphine Sulfate 2mg/ml Inj(IV/IM USE ONLY) IVP PRN ×2 (07:05→21:10)
--- NOTE | 2019-11-21 07:28 | General Progress Note ---
Assessment/Plan Problem List: (1) Diverticulitis of intestine with abscess ICD Codes: K57.80 - Diverticulitis of intestine, part unspecified, with perforation and abscess without bleeding SNOMED: 600873651, [id number] Qualifiers: Qualified Codes: K57.20 - Diverticulitis of large intestine with perforation and abscess without bleeding (2) Elevated liver enzymes ICD Codes: R74.8 - Abnormal levels of other serum enzymes SNOMED: 884768019 (3) Anxiety ICD Codes: F41.9 - Anxiety disorder, unspecified SNOMED: 96379074 Status: stable, unchanged Assessment/Plan: abx ivf pain control has ad recent colonoscopy npo per surg repeat labs Subjective ROS Limited/Unobtainable: Yes Allergies: Coded Allergies: IBUPROFEN (Verified Allergy, Unknown, 08/13/17) Objective Last 24 Hour Vital Signs Date Time Temp Pulse Resp B/P (MAP) Pulse Ox O2 Delivery O2 Flow Rate FiO2 11/21/19 04:00 97.1 59 17 96/59 (71) 97 60 11/21/19 00:00 98.2 60 16 96/48 (64) 97 11/20/19 21:00 Room Air 11/20/19 20:00 98.4 70 17 98/59 (72) 93 11/20/19 16:00 98.6 67 16 92/50 (64) 95 11/20/19 12:00 98.0 69 16 91/55 (67) 96 11/20/19 09:00 Room Air 11/20/19 08:00 98.4 69 16 102/59 (73) 96 Intake and Output 11/20/19 11/21/19 19:00 07:00 Intake Total 1510 ml 900 ml Balance 1510 ml 900 ml Intake Oral 300 ml IV Total 1210 ml 900 ml # Voids 4 2 Laboratory Tests 11/21/19 04:55: White Blood Count 4.7L, Red Blood Count 3.70L, Hemoglobin 11.6L, Hematocrit 33.4L, Mean Corpuscular Volume 90, Mean Corpuscular Hemoglobin 31.4H, Mean Corpuscular Hemoglobin Concent 34.8, Red Cell Distribution Width 10.8L, Platelet Count 152, Mean Platelet Volume 8.6, Neutrophils (%) (Auto) 54.8, Lymphocytes (%) (Auto) 31.6, Monocytes (%) (Auto) 10.1H, Eosinophils (%) (Auto) 2.5, Basophils (%) (Auto) 1.0, Sodium Level 141, Potassium Level 4.5, Chloride Level 107, Carbon Dioxide Level 28, Anion Gap 6, Blood Urea Nitrogen 6L, Creatinine 0.7, Estimat Glomerular Filtration Rate > 60, Glucose Level 112H, Calcium Level 7.9L, Total Bilirubin 0.9, Aspartate Amino Transf (AST/SGOT) 128H , Alanine Aminotransferase (ALT/SGPT) 165H, Alkaline Phosphatase 194H, Total Protein 6.3L, Albumin 2.6L, Globulin 3.7, Albumin/Globulin Ratio 0.7L, Thyroid Stimulating Hormone (TSH) 1.569, Free Thyroxine 1.09 Height (Feet): 5 Height (Inches): 4.00 Weight (Pounds): 145 General Appearance: alert EENT: normal ENT inspection Neck: supple Cardiovascular: normal rate Respiratory/Chest: decreased breath sounds Abdomen: soft, hypoactive bowel sounds, tender Extremities: non-tender Jaime Cooley MD Nov 21, 2019 07:28
--- NOTE | 2019-11-21 07:30 | NUR ---
HAND-OFF: Report given to ANISH Bernal.
[2019-11-21 08:00] VITALS: BP 95/61
--- NOTE | 2019-11-21 08:03 | NUR ---
NURSE NOTES: Received report from Shayla OCONNELL. Patient is awake and oriented, in no apparent distress, reporting mild pain in back and legs, patient stated IV pain medication helped with her pain. IVF running per order. NPO maintained. Patient updated on plan of care for the day. Side rails upx2, bed low and locked, call light within reach, bed alarm armed.
[2019-11-21] MEDS: Pantoprazole Inj IV SCH (08:50)
[2019-11-21] MEDS: Mylanta II UD 30ml ORAL PRN ×2 (10:14→18:21)
[2019-11-21 12:00] VITALS: BP 100/57
--- NOTE | 2019-11-21 12:19 | Internal Med Progress Note ---
Subjective Date of Service: Nov 21, 2019 Physician Name Masood Polanco Attending Physician Masood Polanco MD Current Medications Medications (Trade) Dose Ordered Sig/Marcus Route PRN Reason Start Time Stop Time Status Last Admin Dose Admin Acetaminophen (Tylenol) 650 mg Q4H PRN ORAL Temp >100.5 11/19/19 18:30 12/19/19 18:29 Al Hydroxide/Mg Hydroxide (Mylanta II) 30 ml Q6H PRN ORAL dyspepsia 11/19/19 18:30 12/19/19 18:29 11/21/19 10:14 Dextrose (Dextrose 50%) 25 ml Q30M PRN IV Hypoglycemia 11/19/19 18:30 02/17/20 18:29 Dextrose (Dextrose 50%) 50 ml Q30M PRN IV Hypoglycemia 11/19/19 18:30 02/17/20 18:29 Dextrose/ Electrolytes 1,000 ml @ 100 mls/hr Q10H IV 11/19/19 20:00 12/19/19 19:59 11/21/19 10:18 Diphenhydramine HCl (Benadryl) 25 mg Q6H PRN ORAL Itching/Pruritis 11/19/19 18:30 12/19/19 18:29 Lorazepam (Ativan) 1 mg Q4H PRN ORAL For Anxiety 11/19/19 18:30 11/26/19 18:29 11/20/19 02:11 Morphine Sulfate (Morphine Sulfate) 1 mg EVERY 3 HOURS PRN IVP Mild Pain (Pain Scale 1-3) 11/19/19 18:30 11/26/19 18:29 Morphine Sulfate (Morphine Sulfate) 2 mg EVERY 3 HOURS PRN IVP Moderate Pain (Pain Scale 4-6) 11/19/19 18:30 11/26/19 18:29 11/21/19 07:05 Morphine Sulfate (Morphine Sulfate) 4 mg EVERY 3 HOURS PRN IVP Severe Pain (Pain Scale 7-10) 11/19/19 18:30 11/26/19 18:29 11/21/19 10:15 Ondansetron HCl (Zofran) 4 mg Q6H PRN IVP Nausea & Vomiting 11/19/19 18:30 12/19/19 18:29 11/19/19 20:08 Pantoprazole (Protonix) 40 mg DAILY IV 11/20/19 09:00 12/20/19 08:59 11/21/19 08:50 Piperacillin Sod/ Tazobactam Sod 3.375 gm/Sodium Chloride 110 ml @ 27.5 mls/hr EVERY 8 HOURS IVPB 11/19/19 22:00 11/24/19 21:59 11/21/19 05:27 Temazepam (Restoril) 15 mg HSPRN PRN ORAL Insomnia 11/19/19 21:00 11/26/19 20:59 11/20/19 21:50 Allergies: Coded Allergies: IBUPROFEN (Verified Allergy, Unknown, 08/13/17) Constitutional: Reports: weakness HEENT: Reports: no symptoms Cardiovascular: Reports: no symptoms Respiratory: Reports: no symptoms Gastrointestinal/Abdominal: Reports: abdominal pain Genitourinary: Reports: no symptoms Neurologic/Psychiatric: Reports: anxiety, depressed, other - RLE spasm, Radiculopathy All Systems: reviewed and negative except above Subjective severe Right buttock/thigh muscle spasm without numbness Objective Last Vital Signs Date Time Temp Pulse Resp B/P (MAP) Pulse Ox O2 Delivery O2 Flow Rate FiO2 11/21/19 09:00 Room Air 11/21/19 08:00 97.8 59 16 95/61 (72) 96 General Appearance: moderate distress EENT: normal ENT inspection, pharynx normal Neck: supple Cardiovascular: normal rate, regular rhythm, no gallop/murmur Respiratory/Chest: lungs clear Abdomen: normal bowel sounds, soft, no mass, tender Extremities: non-tender Neurologic: oriented x 3 Skin: warm/dry Laboratory Tests Test 11/21/19 04:55 White Blood Count 4.7 K/UL (4.8-10.8) L Red Blood Count 3.70 M/UL (4.20-5.40) L Hemoglobin 11.6 G/DL (12.0-16.0) L Hematocrit 33.4 % (37.0-47.0) L Mean Corpuscular Volume 90 FL (80-99) Mean Corpuscular Hemoglobin 31.4 PG (27.0-31.0) H Mean Corpuscular Hemoglobin Concent 34.8 G/DL (32.0-36.0) Red Cell Distribution Width 10.8 % (11.6-14.8) L Platelet Count 152 K/UL (150-450) Mean Platelet Volume 8.6 FL (6.5-10.1) Neutrophils (%) (Auto) 54.8 % (45.0-75.0) Lymphocytes (%) (Auto) 31.6 % (20.0-45.0) Monocytes (%) (Auto) 10.1 % (1.0-10.0) H Eosinophils (%) (Auto) 2.5 % (0.0-3.0) Basophils (%) (Auto) 1.0 % (0.0-2.0) Sodium Level 141 MMOL/L (136-145) Potassium Level 4.5 MMOL/L (3.5-5.1) Chloride Level 107 MMOL/L (98-107) Carbon Dioxide Level 28 MMOL/L (21-32) Anion Gap 6 mmol/L (5-15) Blood Urea Nitrogen 6 mg/dL (7-18) L Creatinine 0.7 MG/DL (0.55-1.30) Estimat Glomerular Filtration Rate > 60 mL/min (>60) Glucose Level 112 MG/DL (74-106) H Calcium Level 7.9 MG/DL (8.5-10.1) L Total Bilirubin 0.9 MG/DL (0.2-1.0) Aspartate Amino Transf (AST/SGOT) 128 U/L (15-37) H Alanine Aminotransferase (ALT/SGPT) 165 U/L (12-78) H Alkaline Phosphatase 194 U/L (46-116) H Total Protein 6.3 G/DL (6.4-8.2) L Albumin 2.6 G/DL (3.4-5.0) L Globulin 3.7 g/dL Albumin/Globulin Ratio 0.7 (1.0-2.7) L Thyroid Stimulating Hormone (TSH) 1.569 uiU/mL (0.358-3.740) Free Thyroxine 1.09 NG/DL (0.76-1.46) Microbiology Date/Time Source Procedure Growth Status 11/19/19 17:52 Nasal Nares MRSA Culture - Final NO METHICILLIN RESISTANT STAPH AUREUS... Complete 11/19/19 17:52 Rectum - Final NO CARBAPENEM-RESISTANT ENTEROBACTERI... 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 Complete Intake and Output 11/20/19 11/21/19 19:00 07:00 Intake Total 1510 ml 1100 ml Balance 1510 ml 1100 ml Intake Oral 300 ml IV Total 1210 ml 1100 ml # Voids 4 2 Assessment/Plan Status: stable Assessment/Plan diverticulitis with possible ? abscess abd pain lumbar radiculopathy muscle spasm elevated liver enzymes hx cholecystectomy elevated TSH with normal Free T4 Nausea PLAN; lyrica 50 mg po BID valium 5 mg pi TID pain consult kpad/heat pad robaxin 750 mg po TID IVF IV abx per ID serial abd exam GI/surgery f/u trend LFTs pain control NPO except meds antiemetics electrolyte replete as needed d/w and daughter Masood Polanco MD Time of this note may NOT be the actual encounter time. Time spent today 50 minutes Internal Medicine [phone] - Masood Polanco MD Nov 21, 2019 12:19
[2019-11-21] MEDS ORDERED: Lyrica 50mg cap ORAL SCH (12:45)
[2019-11-21] MEDS: Methocarbamol 750mg tab ORAL SCH ×2 (12:52→17:29)
[2019-11-21] MEDS: Morphine Sulfate 4mg/ml Inj (IV USE ONLY) IVP PRN ×2 (14:58→18:17)
--- NOTE | 2019-11-21 16:00 | NUR ---
NURSE NOTES: VS deferred due to patient is sleeping now s/p multiple episodes of severe lower back/sciatic type pain, pain is in lower back and radiates to right leg. Patient was given morphine x2 and heating pad applied to lower back/right leg for comfort.
[2019-11-21] MEDS ORDERED: Omnipaque-300 100ml vial INJ PRN (16:15)
--- NOTE | 2019-11-21 16:26 | NUR ---
NURSE NOTES: Patient taken to STAT CT abd/pelvis per order from Dr. 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
--- NOTE | 2019-11-21 16:45 | NUR ---
NURSE NOTES: Fabiana RUBIN notified MRI L spine will be done tomorrow.
--- NOTE | 2019-11-21 16:50 | NUR ---
CASE MANAGEMENT: REVIEW 11/21/19 SI: ACUTE DIVERTICULITIS WITH ABSCESS 97.8 59 16 95/61 96% ROOM AIR WBC 4.7 BUN 6 CA+ 7.9 AST/ALT 128/165 ALKP 194 ALB 2.6 IS:IV ZOSYN TID IV D5 @125ML/HR IV MORPHINE SULFATE Q2HR/PRN IV PROTONIX QD \: 3EMED/SURG UNIT DCP: PATIENT IS FROM HOME PLAN: PER SURG: BOWEL REST + NPO NO SURGICAL INTERVENTIONS MRI L SPINE CT ABD+PEL
[2019-11-21 16:55] VITALS: BP 106/68
--- NOTE | 2019-11-21 16:56 | NUR ---
NURSE NOTES: Patient returned from CT in stable condition. VS taken and stable.
--- NOTE | 2019-11-21 17:02 | Consultation ---
History of Present Illness General Date patient seen: Nov 21, 2019 Chief Complaint: Present Illness Allergies: Coded Allergies: IBUPROFEN (Verified Allergy, Unknown, 08/13/17) Medication History Scheduled Albuterol Sulfate* (Albuterol Sulfate Mdi*), 2 PUFF INH Q4H Albuterol Sulfate* (Albuterol Sulfate Mdi*), 2 PUFF INH Q6H Amoxicillin* (Amoxil*), 500 MG ORAL THREE TIMES A DAY Azithromycin* (Zithromax*), 250 MG ORAL DAILY Famotidine (Pepcid), 20 MG ORAL DAILY Loratadine (Claritin), 10 MG ORAL DAILY Lorazepam* (Ativan*), 0.5 MG ORAL THREE TIMES A DAY No Known Medications* (NKM - No Known Medications*), 0 ., (Reported) No Known Medications* (NKM - No Known Medications*), 0 ., (Reported) Oseltamivir Phosphate (Tamiflu), 75 MG ORAL TWICE A DAY Ranitidine Hcl* (Zantac*), 150 MG ORAL TWICE A DAY Vitamin D (Vitamin D3), Unknown Dose ORAL DAILY, (Reported) Scheduled PRN Acetaminophen (Tylenol), 650 MG ORAL Q6H PRN for Prn Pain/Headache/Temp > 101 Acetaminophen* (Tylenol Extra Strength*), 500 MG ORAL Q8H PRN for Prn Headache/ Temp > 101 Acetaminophen* (Tylenol Extra Strength*), 500 MG ORAL Q8H PRN for Prn Headache/ Temp > 101 Codeine/Promethazine Hcl* (Promethazine-Codeine Syrup*), 5 ML ORAL Q4H PRN for For Cough Codeine/Promethazine Hcl* (Promethazine-Codeine Syrup*), 5 ML ORAL Q6H PRN for For Cough Ibuprofen (Motrin), 600 MG ORAL Q8H PRN for For Pain Ondansetron Odt* (Zofran Odt*), 4 MG ORAL Q6H PRN for Nausea & Vomiting Patient History Healthcare decision maker Resuscitation status Advanced Directive on File Physical Exam Last 24 Hour Vital Signs Date Time Temp Pulse Resp B/P (MAP) Pulse Ox O2 Delivery O2 Flow Rate FiO2 11/21/19 16:55 98.3 69 16 106/68 (81) 96 11/21/19 16:00 16 11/21/19 12:00 97.2 65 20 100/57 (71) 97 11/21/19 09:00 Room Air 11/21/19 08:00 97.8 59 16 95/61 (72) 96 11/21/19 04:00 97.1 59 17 96/59 (71) 97 60 11/21/19 00:00 98.2 60 16 96/48 (64) 97 11/20/19 21:00 Room Air 11/20/19 20:00 98.4 70 17 98/59 (72) 93 Intake and Output 11/20/19 11/21/19 19:00 07:00 Intake Total 1510 ml 1100 ml Balance 1510 ml 1100 ml Intake Oral 300 ml IV Total 1210 ml 1100 ml # Voids 4 2 Laboratory Tests Test 11/21/19 04:55 White Blood Count 4.7 K/UL (4.8-10.8) L Red Blood Count 3.70 M/UL (4.20-5.40) L Hemoglobin 11.6 G/DL (12.0-16.0) L Hematocrit 33.4 % (37.0-47.0) L Mean Corpuscular Volume 90 FL (80-99) Mean Corpuscular Hemoglobin 31.4 PG (27.0-31.0) H Mean Corpuscular Hemoglobin Concent 34.8 G/DL (32.0-36.0) Red Cell Distribution Width 10.8 % (11.6-14.8) L Platelet Count 152 K/UL (150-450) Mean Platelet Volume 8.6 FL (6.5-10.1) Neutrophils (%) (Auto) 54.8 % (45.0-75.0) Lymphocytes (%) (Auto) 31.6 % (20.0-45.0) Monocytes (%) (Auto) 10.1 % (1.0-10.0) H Eosinophils (%) (Auto) 2.5 % (0.0-3.0) Basophils (%) (Auto) 1.0 % (0.0-2.0) Sodium Level 141 MMOL/L (136-145) Potassium Level 4.5 MMOL/L (3.5-5.1) Chloride Level 107 MMOL/L (98-107) Carbon Dioxide Level 28 MMOL/L (21-32) Anion Gap 6 mmol/L (5-15) Blood Urea Nitrogen 6 mg/dL (7-18) L Creatinine 0.7 MG/DL (0.55-1.30) Estimat Glomerular Filtration Rate > 60 mL/min (>60) Glucose Level 112 MG/DL (74-106) H Calcium Level 7.9 MG/DL (8.5-10.1) L Total Bilirubin 0.9 MG/DL (0.2-1.0) Aspartate Amino Transf (AST/SGOT) 128 U/L (15-37) H Alanine Aminotransferase (ALT/SGPT) 165 U/L (12-78) H Alkaline Phosphatase 194 U/L (46-116) H Total Protein 6.3 G/DL (6.4-8.2) L Albumin 2.6 G/DL (3.4-5.0) L Globulin 3.7 g/dL Albumin/Globulin Ratio 0.7 (1.0-2.7) L Thyroid Stimulating Hormone (TSH) 1.569 uiU/mL (0.358-3.740) Free Thyroxine 1.09 NG/DL (0.76-1.46) Height (Feet): 5 Height (Inches): 4.00 Weight (Pounds): 145 Medications Current Medications Medications (Trade) Dose Ordered Sig/Marcus Route PRN Reason Start Time Stop Time Status Last Admin Dose Admin Acetaminophen (Tylenol) 650 mg Q4H PRN ORAL Temp >100.5 11/19/19 18:30 12/19/19 18:29 Al Hydroxide/Mg Hydroxide (Mylanta II) 30 ml Q6H PRN ORAL dyspepsia 11/19/19 18:30 12/19/19 18:29 11/21/19 10:14 Dextrose (Dextrose 50%) 25 ml Q30M PRN IV Hypoglycemia 11/19/19 18:30 02/17/20 18:29 Dextrose (Dextrose 50%) 50 ml Q30M PRN IV Hypoglycemia 11/19/19 18:30 02/17/20 18:29 Dextrose/ Electrolytes 1,000 ml @ 125 mls/hr Q8H IV 11/21/19 13:30 12/19/19 13:29 11/21/19 12:54 Diazepam (Valium) 5 mg Q8H ORAL 11/21/19 14:00 11/28/19 13:59 11/21/19 13:55 Diphenhydramine HCl (Benadryl) 25 mg Q6H PRN ORAL Itching/Pruritis 11/19/19 18:30 12/19/19 18:29 Iohexol (OMNIPAQUE-300 100ml) 100 ml NOW PRN INJ Radiology Procedure 11/21/19 16:15 11/23/19 16:12 Lorazepam (Ativan) 1 mg Q4H PRN ORAL For Anxiety 11/19/19 18:30 11/26/19 18:29 11/20/19 02:11 Methocarbamol (Robaxin) 750 mg TID ORAL 11/21/19 13:00 12/21/19 12:59 11/21/19 12:52 Morphine Sulfate (Morphine Sulfate) 1 mg EVERY 3 HOURS PRN IVP Mild Pain (Pain Scale 1-3) 11/19/19 18:30 11/26/19 18:29 Morphine Sulfate (Morphine Sulfate) 2 mg EVERY 3 HOURS PRN IVP Moderate Pain (Pain Scale 4-6) 11/19/19 18:30 11/26/19 18:29 11/21/19 07:05 Morphine Sulfate (Morphine Sulfate) 4 mg EVERY 2 HOURS PRN IVP Severe Pain (Pain Scale 7-10) 11/21/19 12:45 11/26/19 18:29 11/21/19 14:58 Ondansetron HCl (Zofran) 4 mg Q6H PRN IVP Nausea & Vomiting 11/19/19 18:30 12/19/19 18:29 11/21/19 15:03 Pantoprazole (Protonix) 40 mg DAILY IV 11/20/19 09:00 12/20/19 08:59 11/21/19 08:50 Piperacillin Sod/ Tazobactam Sod 3.375 gm/Sodium Chloride 110 ml @ 27.5 mls/hr EVERY 8 HOURS IVPB 11/19/19 22:00 11/24/19 21:59 11/21/19 13:55 Pregabalin (Lyrica) 50 mg BID ORAL 11/21/19 18:00 12/21/19 17:59 Temazepam (Restoril) 15 mg HSPRN PRN ORAL Insomnia 11/19/19 21:00 6/14/20 20:59 11/20/19 21:50 Assessment/Plan Assessment/Plan: (1) Abdominal pain (2) Diverticulitis (3) Lumbar Radiculopathy r/o herniated disc (4) Muscle spasm Seen dictated Vamshi Jung Nov 21, 2019 17:01
--- NOTE | 2019-11-21 17:08 | Surgery Progress Note ---
Surgery Progress Note Subjective Additional Comments Patient seen examined bedside. LFTs still elevated. Labs noted. Complaining of severe lower back sciatic pain. Also states abdominal pain worse today. On examination fairly tender in the left lower quadrant. Stat CT ordered. N.p.o. Objective Last 24 Hour Vital Signs Date Time Temp Pulse Resp B/P (MAP) Pulse Ox O2 Delivery O2 Flow Rate FiO2 11/21/19 16:55 98.3 69 16 106/68 (81) 96 11/21/19 16:00 16 11/21/19 12:00 97.2 65 20 100/57 (71) 97 11/21/19 09:00 Room Air 11/21/19 08:00 97.8 59 16 95/61 (72) 96 11/21/19 04:00 97.1 59 17 96/59 (71) 97 60 11/21/19 00:00 98.2 60 16 96/48 (64) 97 11/20/19 21:00 Room Air 11/20/19 20:00 98.4 70 17 98/59 (72) 93 I&O Intake and Output 11/20/19 11/21/19 19:00 07:00 Intake Total 1510 ml 1100 ml Balance 1510 ml 1100 ml Intake Oral 300 ml IV Total 1210 ml 1100 ml # Voids 4 2 Cardiovascular: RSR Respiratory: clear Abdomen: soft, tenderness, present bowel sounds, non-distended Extremities: no edema, no tenderness, no cyanosis, other Laboratory Tests Test 11/21/19 04:55 White Blood Count 4.7 K/UL (4.8-10.8) L Red Blood Count 3.70 M/UL (4.20-5.40) L Hemoglobin 11.6 G/DL (12.0-16.0) L Hematocrit 33.4 % (37.0-47.0) L Mean Corpuscular Volume 90 FL (80-99) Mean Corpuscular Hemoglobin 31.4 PG (27.0-31.0) H Mean Corpuscular Hemoglobin Concent 34.8 G/DL (32.0-36.0) Red Cell Distribution Width 10.8 % (11.6-14.8) L Platelet Count 152 K/UL (150-450) Mean Platelet Volume 8.6 FL (6.5-10.1) Neutrophils (%) (Auto) 54.8 % (45.0-75.0) Lymphocytes (%) (Auto) 31.6 % (20.0-45.0) Monocytes (%) (Auto) 10.1 % (1.0-10.0) H Eosinophils (%) (Auto) 2.5 % (0.0-3.0) Basophils (%) (Auto) 1.0 % (0.0-2.0) Sodium Level 141 MMOL/L (136-145) Potassium Level 4.5 MMOL/L (3.5-5.1) Chloride Level 107 MMOL/L (98-107) Carbon Dioxide Level 28 MMOL/L (21-32) Anion Gap 6 mmol/L (5-15) Blood Urea Nitrogen 6 mg/dL (7-18) L Creatinine 0.7 MG/DL (0.55-1.30) Estimat Glomerular Filtration Rate > 60 mL/min (>60) Glucose Level 112 MG/DL (74-106) H Calcium Level 7.9 MG/DL (8.5-10.1) L Total Bilirubin 0.9 MG/DL (0.2-1.0) Aspartate Amino Transf (AST/SGOT) 128 U/L (15-37) H Alanine Aminotransferase (ALT/SGPT) 165 U/L (12-78) H Alkaline Phosphatase 194 U/L (46-116) H Total Protein 6.3 G/DL (6.4-8.2) L Albumin 2.6 G/DL (3.4-5.0) L Globulin 3.7 g/dL Albumin/Globulin Ratio 0.7 (1.0-2.7) L Thyroid Stimulating Hormone (TSH) 1.569 uiU/mL (0.358-3.740) Free Thyroxine 1.09 NG/DL (0.76-1.46) Plan Problems: (1) Diverticulitis of intestine with abscess Assessment & Plan: 54 F abd pain , chronic back pain, nausea, emesis. LLQ pain 4 days. worsening labs noted CT as below acute diverticulitis. 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 not ready. foot tender LLQ More tender on examination. Now with sciatica and leg pain as well which complicate make it difficult for full examination properly. Stat repeat CT abdomen pelvis Discussed with PCP thank you will follow with recs thank you ABDOMEN: Liver: Unremarkable Gallbladder and bile ducts: No calcified stones. No ductal dilation. Pancreas: Unremarkable. Spleen: Unremarkable. Adrenals: Unremarkable. Kidneys and ureters: No renal calculi or obstructive changes. Stomach and bowel: Diverticulitis of the distal descending colon with surrounding inflammatory changes. No regular diverticulum measuring approximate 1 cm versus mottled collection with air and debris representing an abscess. No kaushik pneumoperitoneum. PELVIS: Appendix: Unremarkable appendix. Bladder: Unremarkable. Reproductive: Unremarkable. ABDOMEN and PELVIS: Intraperitoneal space: See above. Bones/joints: No acute fracture. Soft tissues: Unremarkable. Vasculature: Unremarkable. No abdominal aortic aneurysm. Lymph nodes: Small mesenteric and retroperitoneal nodes IMPRESSION: Diverticulitis of the distal descending colon with surrounding inflammatory changes. No regular diverticulum measuring approximate 1 cm versus mottled collection with air and debris representing an abscess. No kaushik pneumoperitoneum. Joseph Gregory Nov 21, 2019 17:08
[2019-11-21] MEDS: Lyrica 50mg cap ORAL SCH (17:30)
--- NOTE | 2019-11-21 19:20 | Diagnostic Imaging Report ---
Clinical Indication: Abdominal pain Technique: No oral contrast utilized, per referring physician request IV administration nonionic contrast. Venous phase spiral acquisition obtained through the abdomen and pelvis. Multiplanar reconstructions were generated. Total dose length product 59 mGycm. CTDIvol(s) 5 mGy. Dose reduction achieved using automated exposure control Comparison: 11/19/2019 noncontrast exam Findings: Again demonstrated is inflammation of the fat surrounding the colon at the junction of the distal descending and proximal sigmoid. Previously demonstrated extraluminal gas collection appears larger, currently measuring 2.3 x 1.3 cm, previously 1.8 x 1.2. This appears to contain essentially gas and no evidence of fluid. The surrounding inflammatory change appears slightly increased. There is increased thickening of posterior Gerota's fascia as well as a small amount of inflammation tracking around the left ovarian vein, which is patent. Other colonic diverticula are also noted. The appendix is normal. No small bowel distention. The distal esophagus, stomach, duodenum are unremarkable. Enhancement of the liver is very heterogeneous bed in a geographic distribution. The normal hepatic architecture is preserved. There is a tiny fluid structure within the gallbladder fossa probably represents a very small or nondistended gallbladder, as no cholecystectomy clips are evident. There is a small amount of fluid surrounding the liver. There is also very slight haziness of the fat of the nam hepatis. The hepatic and portal veins are patent. The extrahepatic bile ducts are borderline ectatic. The pancreas, spleen, adrenals, kidneys are unremarkable. No pelvic mass or adenopathy. There are prominent but not frankly enlarged retroperitoneal nodes. Lung bases demonstrate posterior dependent atelectatic changes. There is suggestion of trace pleural fluid on the right. The bones are unremarkable. Impression: Again demonstrated is evidence of acute diverticulitis of the descending/sigmoid colon junction. Adjacent extraluminal gas collection appears larger than on the previous study of 2 days earlier. Unusual geographic heterogeneous hepatic enhancement. The inferior vena cava and hepatic veins are somewhat distended, so this be a manifestation of hepatic congestion secondary to central venous hypertension. Other possibilities include hepatitis. This presumably does not represent geographic fatty liver as the liver is homogeneously normal in attenuation on previous precontrast study. Other vascular etiologies unlikely as the portal veins and hepatic veins appear to be patent. No definite biliary ductal abnormality is evident. Recommend correlation with liver function tests. Basilar dependent atelectasis. Trace right pleural fluid Findings discussed by phone with Dr. Gregory at the time of interpretation The CT scanner at [facility] is accredited by the [place] and the scans are performed using protocols designed to limit radiation exposure to as low as reasonably achievable to attain images of sufficient resolution adequate for diagnostic evaluation.
--- NOTE | 2019-11-21 19:22 | Infectious Diseases Prog Note ---
Assessment/Plan Assessment/Plan Full consult dictated; A) 1) acute diverticulitis 2) ? small abscess 3) abdominal meza P) 1) iv zosyn 2) surgery f/u - no surgical intervention at this time 3) will follow 4) f/u CT ordered secondary to pain Subjective Constitutional: Denies: fever HEENT: Denies: congestion Respiratory: Denies: shortness of breath Gastrointestinal/Abdominal: Reports: other - + abdominal pain Allergies: Coded Allergies: IBUPROFEN (Verified Allergy, Unknown, 08/13/17) Objective Vital Signs Last 24 Hour Vital Signs Date Time Temp Pulse Resp B/P (MAP) Pulse Ox O2 Delivery O2 Flow Rate FiO2 11/21/19 16:55 98.3 69 16 106/68 (81) 96 11/21/19 16:00 16 11/21/19 12:00 97.2 65 20 100/57 (71) 97 11/21/19 09:00 Room Air 11/21/19 08:00 97.8 59 16 95/61 (72) 96 11/21/19 04:00 97.1 59 17 96/59 (71) 97 60 11/21/19 00:00 98.2 60 16 96/48 (64) 97 11/20/19 21:00 Room Air 11/20/19 20:00 98.4 70 17 98/59 (72) 93 Height (Feet): 5 Height (Inches): 4.00 Weight (Pounds): 145 HEENT: normocephalic, atraumatic, anicteric Respiratory/Chest: lungs clear, normal breath sounds, no respiratory distress Cardiovascular: normal rate, regular rhythm Abdomen: tender, other - soft Microbiology Date/Time Source Procedure Growth Status 11/19/19 17:52 Nasal Nares MRSA Culture - Final NO METHICILLIN RESISTANT STAPH AUREUS... Complete 11/19/19 17:52 Rectum - Final NO CARBAPENEM-RESISTANT ENTEROBACTERI... 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 Complete Laboratory Tests Test 11/21/19 04:55 White Blood Count 4.7 K/UL (4.8-10.8) L Red Blood Count 3.70 M/UL (4.20-5.40) L Hemoglobin 11.6 G/DL (12.0-16.0) L Hematocrit 33.4 % (37.0-47.0) L Mean Corpuscular Volume 90 FL (80-99) Mean Corpuscular Hemoglobin 31.4 PG (27.0-31.0) H Mean Corpuscular Hemoglobin Concent 34.8 G/DL (32.0-36.0) Red Cell Distribution Width 10.8 % (11.6-14.8) L Platelet Count 152 K/UL (150-450) Mean Platelet Volume 8.6 FL (6.5-10.1) Neutrophils (%) (Auto) 54.8 % (45.0-75.0) Lymphocytes (%) (Auto) 31.6 % (20.0-45.0) Monocytes (%) (Auto) 10.1 % (1.0-10.0) H Eosinophils (%) (Auto) 2.5 % (0.0-3.0) Basophils (%) (Auto) 1.0 % (0.0-2.0) Sodium Level 141 MMOL/L (136-145) Potassium Level 4.5 MMOL/L (3.5-5.1) Chloride Level 107 MMOL/L (98-107) Carbon Dioxide Level 28 MMOL/L (21-32) Anion Gap 6 mmol/L (5-15) Blood Urea Nitrogen 6 mg/dL (7-18) L Creatinine 0.7 MG/DL (0.55-1.30) Estimat Glomerular Filtration Rate > 60 mL/min (>60) Glucose Level 112 MG/DL (74-106) H Calcium Level 7.9 MG/DL (8.5-10.1) L Total Bilirubin 0.9 MG/DL (0.2-1.0) Aspartate Amino Transf (AST/SGOT) 128 U/L (15-37) H Alanine Aminotransferase (ALT/SGPT) 165 U/L (12-78) H Alkaline Phosphatase 194 U/L (46-116) H Total Protein 6.3 G/DL (6.4-8.2) L Albumin 2.6 G/DL (3.4-5.0) L Globulin 3.7 g/dL Albumin/Globulin Ratio 0.7 (1.0-2.7) L Thyroid Stimulating Hormone (TSH) 1.569 uiU/mL (0.358-3.740) Free Thyroxine 1.09 NG/DL (0.76-1.46) Current Medications Medications (Trade) Dose Ordered Sig/Marcus Route PRN Reason Start Time Stop Time Status Last Admin Dose Admin Acetaminophen (Tylenol) 650 mg Q4H PRN ORAL Temp >100.5 11/19/19 18:30 12/19/19 18:29 Al Hydroxide/Mg Hydroxide (Mylanta II) 30 ml Q6H PRN ORAL dyspepsia 11/19/19 18:30 12/19/19 18:29 11/21/19 18:21 Dextrose (Dextrose 50%) 25 ml Q30M PRN IV Hypoglycemia 11/19/19 18:30 02/17/20 18:29 Dextrose (Dextrose 50%) 50 ml Q30M PRN IV Hypoglycemia 11/19/19 18:30 02/17/20 18:29 Dextrose/ Electrolytes 1,000 ml @ 125 mls/hr Q8H IV 11/21/19 13:30 12/19/19 13:29 11/21/19 12:54 Diazepam (Valium) 5 mg Q8H ORAL 11/21/19 14:00 11/28/19 13:59 11/21/19 13:55 Diphenhydramine HCl (Benadryl) 25 mg Q6H PRN ORAL Itching/Pruritis 11/19/19 18:30 12/19/19 18:29 Iohexol (OMNIPAQUE-300 100ml) 100 ml NOW PRN INJ Radiology Procedure 11/21/19 16:15 11/23/19 16:12 Lorazepam (Ativan) 1 mg Q4H PRN ORAL For Anxiety 11/19/19 18:30 11/26/19 18:29 11/20/19 02:11 Methocarbamol (Robaxin) 750 mg TID ORAL 11/21/19 13:00 12/21/19 12:59 11/21/19 17:29 Morphine Sulfate (Morphine Sulfate) 1 mg EVERY 3 HOURS PRN IVP Mild Pain (Pain Scale 1-3) 11/19/19 18:30 11/26/19 18:29 Morphine Sulfate (Morphine Sulfate) 2 mg EVERY 3 HOURS PRN IVP Moderate Pain (Pain Scale 4-6) 11/19/19 18:30 11/26/19 18:29 11/21/19 07:05 Morphine Sulfate (Morphine Sulfate) 4 mg EVERY 2 HOURS PRN IVP Severe Pain (Pain Scale 7-10) 11/21/19 12:45 11/26/19 18:29 11/21/19 18:17 Ondansetron HCl (Zofran) 4 mg Q6H PRN IVP Nausea & Vomiting 11/19/19 18:30 12/19/19 18:29 11/21/19 15:03 Pantoprazole (Protonix) 40 mg DAILY IV 11/20/19 09:00 12/20/19 08:59 11/21/19 08:50 Piperacillin Sod/ Tazobactam Sod 3.375 gm/Sodium Chloride 110 ml @ 27.5 mls/hr EVERY 8 HOURS IVPB 11/19/19 22:00 11/24/19 21:59 11/21/19 13:55 Pregabalin (Lyrica) 50 mg BID ORAL 11/21/19 18:00 12/21/19 17:59 11/21/19 17:30 Temazepam (Restoril) 15 mg HSPRN PRN ORAL Insomnia 11/19/19 21:00 11/26/19 20:59 11/20/19 21:50 Annemarie Zavala MD Nov 21, 2019 19:22
--- NOTE | 2019-11-21 19:22 | NUR ---
HAND-OFF: Report given to Shayla OCONNELL. Patient is in stable condition, patient currently sleeping.
--- NOTE | 2019-11-21 19:30 | NUR ---
NURSE NOTES: Received report from ANISH Bernal. Patient sleeping at this time. Bed in low position, locked, side rails up x2, call light within reach.
[2019-11-21 20:00] VITALS: BP 102/64
--- NOTE | 2019-11-21 21:10 | NUR ---
NURSE NOTES: Patient c/0 pain in her back, going down the right leg. Given IVP med as ordered. Repositioned for comfort, warm pad on back. Given ice chips, reinforced NPO diet, except ice chips and sips with meds. Patient verbalizes understanding. Encouraged deep breathing exercises and expression of feelings to aid with anxiety. Discussed pain and anxiety management and provided reassurance. Will continue to monitor.
[2019-11-22] VITALS: BP 105/62
--- NOTE | 2019-11-22 00:40 | NUR ---
NURSE NOTES: Patient sleeping, respirations unlabored.
--- NOTE | 2019-11-22 01:15 | Consultation ---
DATE OF CONSULTATION: 11/21/2019 INFECTIOUS DISEASES CONSULTATION CONSULTING PHYSICIAN: Annemarie Zavala MD. ATTENDING PHYSICIAN: Masood Polanco MD. REFERRING PHYSICIAN: Masood Polanco MD. REASON FOR CONSULTATION: Diverticulitis with possible intra-abdominal abscesses. CHIEF COMPLAINT: The patient's chief complaint coming into the hospital is diverticulitis with abscess. HISTORY OF PRESENT ILLNESS: This is a very pleasant 54-year-old female who comes into [facility] with abdominal pain. CT scan of the abdomen and pelvis showed the patient to have diverticulitis of the distal descending colon with inflammatory changes either mottled collection of air or debris representing abscess, no kaushik pneumoperitoneum. The patient is being followed by Surgery. Infectious Diseases consultation requested. The patient currently is on Zosyn. Because of persistent abdominal pain, a repeat CT scan of the abdomen and pelvis had been ordered. MAR was noted. Orders were noted. Notes were reviewed. Of note, today she also has some back pain and leg pain in addition to abdominal pain. REVIEW OF SYSTEMS: Main issue is abdominal pain, leg pain. No fever or chills. HEAD AND NECK: No head or neck pain. CARDIAC: No chest pain. GASTROINTESTINAL: Abdominal pain. No nausea, vomiting, or diarrhea. GENITOURINARY: No dysuria or frequency. PULMONARY: No shortness of breath. SKIN: No rash. NEUROLOGIC: No seizures. No focal weakness. PAST MEDICAL HISTORY: The patient's past medical history includes the following: The patient has a past medical history of cholecystectomy and GI issues looks like in the past per the nursing documentation. No history of diabetes or hypertension. ALLERGIES: Ibuprofen. SOCIAL HISTORY: Negative for smoking, alcohol, drug abuse. FAMILY HISTORY: Positive for stomach cancer and gyne cancer. MEDICATIONS: Upon reviewing the MAR, she is on the following medications. She is on Lyrica, Valium, Robaxin, morphine, pantoprazole, Zosyn, and temazepam. Outside medications noted and reconciliated. It looks like she is on in the outpatient setting amoxicillin, azithromycin, codeine, loratadine, famotidine, Lorazepam, albuterol, acetaminophen, was also given Tamiflu in the past, Zantac. PHYSICAL EXAMINATION: VITAL SIGNS: Temperature is 98.3, pulse rate 59, respiratory rate 16, blood pressure 106/68, saturation 96% on room air. HEAD AND NECK: Oral exam, no thrush. Eye exam, no icterus. Normocephalic. Neck is supple. No JVD. HEART: Regular. No gallop or murmur. ABDOMEN: Soft but tender. Positive bowel sounds LUNGS: Fairly clear bilaterally. No rhonchi and rales. SKIN: No rash. MUSCULOSKELETAL: No effusions. Legs without cellulitis. PERIPHERAL VASCULAR: No cyanosis or gangrene. No septic arthritis. GENITOURINARY: No Zepeda. She did have back pain. NEUROLOGIC: Intact. Nonfocal. Alert and oriented. LABORATORY AND DIAGNOSTIC DATA: White count 4.7, hemoglobin 11.6, platelet count 152. ESR 69, creatinine is 0.7. LFTs were elevated, AST 128, ALT 165, alkaline phosphatase 194. IMAGING STUDIES: CT scan of the abdomen and pelvis showed diverticulitis of the distal ascending colon with surrounding inflammatory changes. No kaushik pneumoperitoneum. Followup CT abdomen pelvis also been ordered. Initial CT showed diverticulitis in the distal colon with possible 1 cm mottled collection and abscess. ASSESSMENT AND PLAN: 1. The patient has acute diverticulitis with abdominal pain. The patient has questionable small abscess. Continue Zosyn. She is well covered for diverticulitis with Zosyn including gram-negatives, anaerobes, Enterococcus. Continue Zosyn for acute diverticulitis, possible abscess. At this time, no surgical intervention. Check followup CT scan. Surgery is following. This is day #2 Zosyn. 2. History of cholecystectomy. 3. Abdominal pain. 4. No history of diabetes or hypertension. 5. Back pain. 6. Allergies to ibuprofen. 7. Social history is negative. 8. Family history is positive for malignancy. 9. MAR was noted. 10. Case discussed with RN. 11. Continue treatment per primary consultants. Annemarie Zavala M.D. DR: David JOB#: [id number] CC:
[2019-11-22] MEDS: Morphine Sulfate 4mg/ml Inj (IV USE ONLY) IVP PRN ×2 (03:26→08:51)
[2019-11-22 04:00] VITALS: BP 112/68
[2019-11-22] MEDS: Piperacillin/Tazobactam 3.375 GM in NS 110 ML IVPB SCH ×3 (06:16→20:34)
[2019-11-22 06:39] LABS: BASOPHILS % (AUTO) 0.6 % (0.0-2.0); EOSINOPHILS % (AUTO) 1.7 % (0.0-3.0); HEMATOCRIT 32.4 % (37.0-47.0); HEMOGLOBIN 11.2 G/DL (12.0-16.0); LYMPHOCYTES % (AUTO) 22.8 % (20.0-45.0); MEAN CORPUSCULAR VOLUME 91 FL (80-99); MONOCYTES % (AUTO) 8.5 % (1.0-10.0); NEUTROPHILS % (AUTO) 66.5 % (45.0-75.0); PLATELET COUNT 143 K/UL (150-450); RED BLOOD COUNT 3.55 M/UL (4.20-5.40); RED CELL DISTRIBUTION WIDTH 10.7 % (11.6-14.8); WHITE BLOOD COUNT 6.1 K/UL (4.8-10.8)
[2019-11-22 07:04] LABS: ALANINE AMINOTRANSFERASE 141 U/L (12-78); ALBUMIN 2.6 G/DL (3.4-5.0); ALBUMIN/GLOBULIN RATIO 0.7 (1.0-2.7); ALKALINE PHOSPHATASE 214 U/L (46-116); ANION GAP 8 mmol/L (5-15); ASPARTATE AMINO TRANSFERASE 92 U/L (15-37); BILIRUBIN,TOTAL 0.8 MG/DL (0.2-1.0); BLOOD UREA NITROGEN 3 mg/dL (7-18); CALCIUM 7.9 MG/DL (8.5-10.1); CARBON DIOXIDE 27 MMOL/L (21-32); CHLORIDE 107 MMOL/L (98-107); CREATININE 0.8 MG/DL (0.55-1.30); POTASSIUM 4.3 MMOL/L (3.5-5.1); SODIUM 141 MMOL/L (136-145)
--- NOTE | 2019-11-22 07:30 | NUR ---
HAND-OFF: Report given to ANISH Claudio.
[2019-11-22 08:00] VITALS: BP 116/68
--- NOTE | 2019-11-22 08:27 | NUR ---
NURSE NOTES: received report from ANISH Mcguire. patient in bed. a&Ox4. verbally responsive. anxious d/t pain on lower back and right leg. IV on LH20g running d5ns@150/hr. intact. no skin issues. ambulatory with assist. NPO. MRI will be done today. continent both B&B. bed in the lowest position and locked. call light within reach. will continue to provide plan of care.
[2019-11-22] MEDS: Mylanta II UD 30ml ORAL PRN ×2 (08:49→17:52)
[2019-11-22] MEDS: Methocarbamol 750mg tab ORAL SCH ×3 (08:50→17:51)
[2019-11-22] MEDS: Pantoprazole Inj IV SCH (08:50)
[2019-11-22] MEDS: Lyrica 50mg cap ORAL SCH ×2 (08:50→17:52)
--- NOTE | 2019-11-22 10:18 | General Progress Note ---
Assessment/Plan Problem List: (1) Diverticulitis of intestine with abscess ICD Codes: K57.80 - Diverticulitis of intestine, part unspecified, with perforation and abscess without bleeding SNOMED: 721494792, [id number] Qualifiers: Qualified Codes: K57.20 - Diverticulitis of large intestine with perforation and abscess without bleeding (2) Elevated liver enzymes ICD Codes: R74.8 - Abnormal levels of other serum enzymes SNOMED: [id number] (3) Anxiety ICD Codes: F41.9 - Anxiety disorder, unspecified SNOMED: 75241141 Status: stable Assessment/Plan: abx ivf pain control has ad recent colonoscopy npo per surg pending MRI today repeat labs Subjective ROS Limited/Unobtainable: No Allergies: Coded Allergies: IBUPROFEN (Verified Allergy, Unknown, 08/13/17) Objective Last 24 Hour Vital Signs Date Time Temp Pulse Resp B/P (MAP) Pulse Ox O2 Delivery O2 Flow Rate FiO2 11/22/19 08:00 97.3 68 20 116/68 (84) 94 11/22/19 04:00 98.0 71 20 112/68 (83) 95 11/22/19 00:00 98.8 78 20 105/62 (76) 94 11/21/19 21:00 Room Air 11/21/19 20:00 98.5 69 20 102/64 (77) 94 11/21/19 16:55 98.3 69 16 106/68 (81) 96 11/21/19 16:00 16 11/21/19 12:00 97.2 65 20 100/57 (71) 97 Intake and Output 11/21/19 11/22/19 19:00 07:00 Intake Total 1385 ml 1125 ml Output Total 600 ml Balance 1385 ml 525 ml IV Total 1385 ml 1125 ml Output Urine Total 550 ml Emesis 50 ml # Voids 2 1 Laboratory Tests 11/22/19 05:15: White Blood Count 6.1, Red Blood Count 3.55L, Hemoglobin 11.2L, Hematocrit 32.4L , Mean Corpuscular Volume 91, Mean Corpuscular Hemoglobin 31.5H, Mean Corpuscular Hemoglobin Concent 34.5, Red Cell Distribution Width 10.7L, Platelet Count 143L, Mean Platelet Volume 8.3, Neutrophils (%) (Auto) 66.5, Lymphocytes (%) (Auto) 22.8, Monocytes (%) (Auto) 8.5, Eosinophils (%) (Auto) 1.7, Basophils (%) (Auto) 0.6, Erythrocyte Sedimentation Rate 85H, Sodium Level 141, Potassium Level 4.3, Chloride Level 107, Carbon Dioxide Level 27, Anion Gap 8, Blood Urea Nitrogen 3L, Creatinine 0.8, Estimat Glomerular Filtration Rate > 60, Glucose Level 117H, Calcium Level 7.9L, Total Bilirubin 0.8, Aspartate Amino Transf (AST/SGOT) 92H, Alanine Aminotransferase (ALT/SGPT) 141H , Alkaline Phosphatase 214H, C-Reactive Protein, Quantitative 4.3H, Total Protein 6.1L, Albumin 2.6L, Globulin 3.5, Albumin/Globulin Ratio 0.7L, Amylase Level 62, Lipase 125 Height (Feet): 5 Height (Inches): 4.00 Weight (Pounds): 144 General Appearance: alert EENT: normal ENT inspection Neck: supple Cardiovascular: normal rate Respiratory/Chest: decreased breath sounds Abdomen: normal bowel sounds, soft, tender Extremities: non-tender Jaime Cooley MD Nov 22, 2019 10:18
--- NOTE | 2019-11-22 10:20 | NUR ---
MRI LUMBAR COMPLETED.
--- NOTE | 2019-11-22 11:11 | Diagnostic Imaging Report ---
EXAM: MRI MRI L Spine no Contrast HISTORY: Back pain and radiculopathy. Muscle spasm. COMPARISON: No prior studies available for comparison. TECHNIQUE: MR scanning of the lumbar spine includes sagittal T1, T2 and axial T1 and T2 sequences. FINDINGS: There is anatomic alignment. Vertebral bodies are intact without compression deformity. Small Schmorl's node deformities noted at the inferior endplate of L1 and superior endplate of L2. Heterogeneous marrow signal reflects blood and yellow marrow conversion. There is no acute paraspinal soft tissue abnormality seen. L1-L2: There is minimal annular prominence without significant stenosis. L2-L3: There is minimal central annular prominence. Mild right and left lateral bulging approximate 1 to 2 mm without significant stenosis. L3-L4: Right and left lateral bulging are also 1 to 2 mm without significant stenosis. L4-L5: There is broad bulging approximately 2 mm. It is slightly more exaggerated in the right paracentral aspect. There is central thecal sac indentation but AP diameter of the spinal canal is in the normal range. Bilateral facet hypertrophy is present. Combination of eccentric disc and facet disease contribute to [id number] bilateral foraminal narrowing. Moderate narrowing of the right lateral recess also noted. L5-S1: There is minimal annular prominence without significant compromise. Mild bilateral facet hypertrophy noted. Conus medullaris and cauda equina are unremarkable. IMPRESSION: Spondylosis of the lumbar spine as noted above. The most affected level is at L4-5 where there is right lateral recess stenosis along with bilateral [id number] foraminal stenosis.
--- NOTE | 2019-11-22 11:13 | NUR ---
NURSE NOTES: patient c/o pain on lower bag to right leg even after morphine 2mg IVP. patient is at the bedside. He doesn't want the patient get another pain medication at this time and asking if the patient can get PT tx for massage on her back. Called [facility]. PT doesn't provide massage tx. informed . gave CARYN Jung who ordered MRI per request.
[2019-11-22 12:00] VITALS: BP 91/57
--- NOTE | 2019-11-22 12:18 | Internal Med Progress Note ---
Subjective Date of Service: Nov 22, 2019 Physician Name Masood Polanco Attending Physician Masood Polanco MD Current Medications Medications (Trade) Dose Ordered Sig/Marcus Route PRN Reason Start Time Stop Time Status Last Admin Dose Admin Acetaminophen (Tylenol) 650 mg Q4H PRN ORAL Temp >100.5 11/19/19 18:30 12/19/19 18:29 Al Hydroxide/Mg Hydroxide (Mylanta II) 30 ml Q6H PRN ORAL dyspepsia 11/19/19 18:30 12/19/19 18:29 11/22/19 08:49 Dextrose (Dextrose 50%) 25 ml Q30M PRN IV Hypoglycemia 11/19/19 18:30 02/17/20 18:29 Dextrose (Dextrose 50%) 50 ml Q30M PRN IV Hypoglycemia 11/19/19 18:30 02/17/20 18:29 Dextrose/ Electrolytes 1,000 ml @ 125 mls/hr Q8H IV 11/21/19 13:30 12/19/19 13:29 11/22/19 05:00 Diazepam (Valium) 5 mg Q8H ORAL 11/21/19 14:00 11/28/19 13:59 11/22/19 06:16 Diphenhydramine HCl (Benadryl) 25 mg Q6H PRN ORAL Itching/Pruritis 11/19/19 18:30 12/19/19 18:29 Iohexol (OMNIPAQUE-300 100ml) 100 ml NOW PRN INJ Radiology Procedure 11/21/19 16:15 11/23/19 16:12 Lorazepam (Ativan) 1 mg Q4H PRN ORAL For Anxiety 11/19/19 18:30 11/26/19 18:29 11/20/19 02:11 Methocarbamol (Robaxin) 750 mg TID ORAL 11/21/19 13:00 12/21/19 12:59 11/22/19 08:50 Morphine Sulfate (Morphine Sulfate) 1 mg EVERY 3 HOURS PRN IVP Mild Pain (Pain Scale 1-3) 11/19/19 18:30 11/26/19 18:29 Morphine Sulfate (Morphine Sulfate) 2 mg EVERY 3 HOURS PRN IVP Moderate Pain (Pain Scale 4-6) 11/19/19 18:30 11/26/19 18:29 11/21/19 21:10 Morphine Sulfate (Morphine Sulfate) 4 mg EVERY 2 HOURS PRN IVP Severe Pain (Pain Scale 7-10) 11/21/19 12:45 11/26/19 18:29 11/22/19 08:51 Ondansetron HCl (Zofran) 4 mg Q6H PRN IVP Nausea & Vomiting 11/19/19 18:30 12/19/19 18:29 11/21/19 21:35 Pantoprazole (Protonix) 40 mg DAILY IV 11/20/19 09:00 12/20/19 08:59 11/22/19 08:50 Piperacillin Sod/ Tazobactam Sod 3.375 gm/Sodium Chloride 110 ml @ 27.5 mls/hr EVERY 8 HOURS IVPB 11/19/19 22:00 11/24/19 21:59 11/22/19 06:16 Pregabalin (Lyrica) 50 mg BID ORAL 11/21/19 18:00 12/21/19 17:59 11/22/19 08:50 Temazepam (Restoril) 15 mg HSPRN PRN ORAL Insomnia 11/19/19 21:00 11/26/19 20:59 11/21/19 23:43 Allergies: Coded Allergies: IBUPROFEN (Verified Allergy, Unknown, 08/13/17) Constitutional: Reports: malaise HEENT: Reports: no symptoms Cardiovascular: Reports: no symptoms Respiratory: Reports: no symptoms Gastrointestinal/Abdominal: Reports: abdominal pain Genitourinary: Reports: no symptoms Neurologic/Psychiatric: Reports: anxiety, depressed, emotional problems, pre- existing deficit, other - right radiculopathy All Systems: reviewed and negative except above Subjective severe Right buttock/thigh muscle spasm without numbness Objective Last Vital Signs Date Time Temp Pulse Resp B/P (MAP) Pulse Ox O2 Delivery O2 Flow Rate FiO2 11/22/19 08:00 97.3 68 20 116/68 (84) 94 11/21/19 21:00 Room Air General Appearance: mild distress EENT: pharynx normal Neck: supple Cardiovascular: normal rate, regular rhythm, no gallop/murmur Respiratory/Chest: lungs clear Abdomen: normal bowel sounds, soft, no mass, tender Neurologic: no motor/sensory deficits, oriented x 3, responsive, other - right buttocks/right da radiculopathy Skin: warm/dry Laboratory Tests Test 11/22/19 05:15 White Blood Count 6.1 K/UL (4.8-10.8) Red Blood Count 3.55 M/UL (4.20-5.40) L Hemoglobin 11.2 G/DL (12.0-16.0) L Hematocrit 32.4 % (37.0-47.0) L Mean Corpuscular Volume 91 FL (80-99) Mean Corpuscular Hemoglobin 31.5 PG (27.0-31.0) H Mean Corpuscular Hemoglobin Concent 34.5 G/DL (32.0-36.0) Red Cell Distribution Width 10.7 % (11.6-14.8) L Platelet Count 143 K/UL (150-450) L Mean Platelet Volume 8.3 FL (6.5-10.1) Neutrophils (%) (Auto) 66.5 % (45.0-75.0) Lymphocytes (%) (Auto) 22.8 % (20.0-45.0) Monocytes (%) (Auto) 8.5 % (1.0-10.0) Eosinophils (%) (Auto) 1.7 % (0.0-3.0) Basophils (%) (Auto) 0.6 % (0.0-2.0) Erythrocyte Sedimentation Rate 85 MM/HR (0-30) H Sodium Level 141 MMOL/L (136-145) Potassium Level 4.3 MMOL/L (3.5-5.1) Chloride Level 107 MMOL/L (98-107) Carbon Dioxide Level 27 MMOL/L (21-32) Anion Gap 8 mmol/L (5-15) Blood Urea Nitrogen 3 mg/dL (7-18) L Creatinine 0.8 MG/DL (0.55-1.30) Estimat Glomerular Filtration Rate > 60 mL/min (>60) Glucose Level 117 MG/DL (74-106) H Calcium Level 7.9 MG/DL (8.5-10.1) L Total Bilirubin 0.8 MG/DL (0.2-1.0) Aspartate Amino Transf (AST/SGOT) 92 U/L (15-37) H Alanine Aminotransferase (ALT/SGPT) 141 U/L (12-78) H Alkaline Phosphatase 214 U/L (46-116) H C-Reactive Protein, Quantitative 4.3 mg/dL (0.00-0.90) H Total Protein 6.1 G/DL (6.4-8.2) L Albumin 2.6 G/DL (3.4-5.0) L Globulin 3.5 g/dL Albumin/Globulin Ratio 0.7 (1.0-2.7) L Amylase Level 62 U/L (25-115) Lipase 125 U/L (73-393) Microbiology Date/Time Source Procedure Growth Status 11/19/19 17:52 Nasal Nares MRSA Culture - Final NO METHICILLIN RESISTANT STAPH AUREUS... Complete 11/19/19 17:52 Rectum - Final NO CARBAPENEM-RESISTANT ENTEROBACTERI... 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 Complete Intake and Output 11/21/19 11/22/19 19:00 07:00 Intake Total 1385 ml 1125 ml Output Total 600 ml Balance 1385 ml 525 ml IV Total 1385 ml 1125 ml Output Urine Total 550 ml Emesis 50 ml # Voids 2 1 Objective still LBP, R buttock painR thigh pain MRI lumbar abd repeat CT d/w pt Assessment/Plan Status: stable, progressing Assessment/Plan diverticulitis with possible ? abscess abd pain lumbar radiculopathy muscle spasm elevated liver enzymes hx cholecystectomy elevated TSH with normal Free T4 Nausea PLAN; lyrica 50 mg po BID valium 5 mg pi TID pain f/u MRI lumber and repeat abd CT d/w pt kpad/heat pad robaxin 750 mg po TID IVF IV abx per ID serial abd exam GI/surgery f/u trend LFTs pain control NPO except meds antiemetics electrolyte replete as needed d/w and daughter dw GI and surgery Masood Polanco MD Time of this note may NOT be the actual encounter time. Time spent today 50 minutes Internal Medicine [phone] Masood Davidson MD Nov 22, 2019 12:18
[2019-11-22] MEDS: Morphine Sulfate 2mg/ml Inj(IV/IM USE ONLY) IVP PRN ×2 (12:42→17:53)
--- NOTE | 2019-11-22 13:02 | NUR ---
CASE MANAGEMENT: REVIEW 11/22/19 SI: ACUTE DIVERTICULITIS WITH ABSCESS 97.3 68 20 116/68 94% ROOM AIR ESR 85 PLT 143 BUN 6 CA+ 7.9 AST/ALT 92/141 ALKP 214 ALB 2.6 C-REC PROT 4.3 IS:IV ZOSYN TID IV D5 @125ML/HR IV MORPHINE SULFATE Q3HR/PRN IV PROTONIX QD MRI L SPINE -Spondylosis of the lumbar spine. The most affected level is at L4-5 where there is right lateral recess stenosis along with bilateral [id number] foraminal stenosis. \: 3EMED/SURG UNIT DCP: PATIENT IS FROM HOME PLAN: AM LABS CT ABD+PEL STAT- Again demonstrated is evidence of acute diverticulitis of the descending/sigmoid colon junction. Adjacent extraluminal gas collection appears larger than on the previous study of [address] TO BE REVIEWED BY SURGERY
--- NOTE | 2019-11-22 14:26 | Surgery Progress Note ---
Surgery Progress Note Subjective Additional Comments CT noted diverticulitis progressive but not perforated states abdominal pain much better today still having a lot of back pain MRI noted Appreciate pain management input Currently no nausea vomiting fever chills ESR elevated CRP trending down improving overall Objective Last 24 Hour Vital Signs Date Time Temp Pulse Resp B/P (MAP) Pulse Ox O2 Delivery O2 Flow Rate FiO2 11/22/19 08:00 97.3 68 20 116/68 (84) 94 11/22/19 04:00 98.0 71 20 112/68 (83) 95 11/22/19 00:00 98.8 78 20 105/62 (76) 94 11/21/19 21:00 Room Air 11/21/19 20:00 98.5 69 20 102/64 (77) 94 11/21/19 16:55 98.3 69 16 106/68 (81) 96 11/21/19 16:00 16 I&O Intake and Output 11/21/19 11/22/19 19:00 07:00 Intake Total 1385 ml 1125 ml Output Total 600 ml Balance 1385 ml 525 ml IV Total 1385 ml 1125 ml Output Urine Total 550 ml Emesis 50 ml # Voids 2 1 Dressing: other Wound: other Drains: other Cardiovascular: RSR Respiratory: decreased breath sounds Abdomen: soft, distended, tenderness, present bowel sounds Extremities: no tenderness, no cyanosis, other Laboratory Tests Test 11/22/19 05:15 White Blood Count 6.1 K/UL (4.8-10.8) Red Blood Count 3.55 M/UL (4.20-5.40) L Hemoglobin 11.2 G/DL (12.0-16.0) L Hematocrit 32.4 % (37.0-47.0) L Mean Corpuscular Volume 91 FL (80-99) Mean Corpuscular Hemoglobin 31.5 PG (27.0-31.0) H Mean Corpuscular Hemoglobin Concent 34.5 G/DL (32.0-36.0) Red Cell Distribution Width 10.7 % (11.6-14.8) L Platelet Count 143 K/UL (150-450) L Mean Platelet Volume 8.3 FL (6.5-10.1) Neutrophils (%) (Auto) 66.5 % (45.0-75.0) Lymphocytes (%) (Auto) 22.8 % (20.0-45.0) Monocytes (%) (Auto) 8.5 % (1.0-10.0) Eosinophils (%) (Auto) 1.7 % (0.0-3.0) Basophils (%) (Auto) 0.6 % (0.0-2.0) Erythrocyte Sedimentation Rate 85 MM/HR (0-30) H Sodium Level 141 MMOL/L (136-145) Potassium Level 4.3 MMOL/L (3.5-5.1) Chloride Level 107 MMOL/L (98-107) Carbon Dioxide Level 27 MMOL/L (21-32) Anion Gap 8 mmol/L (5-15) Blood Urea Nitrogen 3 mg/dL (7-18) L Creatinine 0.8 MG/DL (0.55-1.30) Estimat Glomerular Filtration Rate > 60 mL/min (>60) Glucose Level 117 MG/DL (74-106) H Calcium Level 7.9 MG/DL (8.5-10.1) L Total Bilirubin 0.8 MG/DL (0.2-1.0) Aspartate Amino Transf (AST/SGOT) 92 U/L (15-37) H Alanine Aminotransferase (ALT/SGPT) 141 U/L (12-78) H Alkaline Phosphatase 214 U/L (46-116) H C-Reactive Protein, Quantitative 4.3 mg/dL (0.00-0.90) H Total Protein 6.1 G/DL (6.4-8.2) L Albumin 2.6 G/DL (3.4-5.0) L Globulin 3.5 g/dL Albumin/Globulin Ratio 0.7 (1.0-2.7) L Amylase Level 62 U/L (25-115) Lipase 125 U/L (73-393) Plan Problems: (1) Diverticulitis of intestine with abscess Assessment & Plan: 54 F abd pain , chronic back pain, nausea, emesis. LLQ pain 4 days. worsening labs noted CT as below acute diverticulitis. 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 Now with sciatica and leg pain as well which complicate make it difficult for full examination properly. Stat repeat CT abdomen pelvis Discussed with PCP thank you will follow with recs Repeat CT noted. Progression of inflammation but no perforation. Will need longer bowel rest patient is not hungry currently and slowly feeling better. Continue IV antibiotics. Pain management for spinal pain. thank you ABDOMEN: Liver: Unremarkable Gallbladder and bile ducts: No calcified stones. No ductal dilation. Pancreas: Unremarkable. Spleen: Unremarkable. Adrenals: Unremarkable. Kidneys and ureters: No renal calculi or obstructive changes. Stomach and bowel: Diverticulitis of the distal descending colon with surrounding inflammatory changes. No regular diverticulum measuring approximate 1 cm versus mottled collection with air and debris representing an abscess. No kaushik pneumoperitoneum. PELVIS: Appendix: Unremarkable appendix. Bladder: Unremarkable. Reproductive: Unremarkable. ABDOMEN and PELVIS: Intraperitoneal space: See above. Bones/joints: No acute fracture. Soft tissues: Unremarkable. Vasculature: Unremarkable. No abdominal aortic aneurysm. Lymph nodes: Small mesenteric and retroperitoneal nodes IMPRESSION: Diverticulitis of the distal descending colon with surrounding inflammatory changes. No regular diverticulum measuring approximate 1 cm versus mottled collection with air and debris representing an abscess. No kaushik pneumoperitoneum. Joseph Gregory Nov 22, 2019 14:26
[2019-11-22 16:00] VITALS: BP 122/77
--- NOTE | 2019-11-22 17:12 | General Progress Note ---
Assessment/Plan Assessment/Plan: (1) Abdominal pain (2) Diverticulitis (3) Lumbar Radiculopathy- herniated disc (4) Muscle spasm Will be continued on Morphine, Lyrica, Robaxin and Valium We will start Lidocaine patch Q12H on and Q12H off and bengay cream to low back 4 times a day. D/w Dr. Allen and he concurred. Subjective Date patient seen: Nov 22, 2019 Time patient seen: 04:45 - pm Constitutional: Reports: weakness HEENT: Reports: no symptoms Cardiovascular: Reports: no symptoms Respiratory: Reports: no symptoms Gastrointestinal/Abdominal: Reports: abdominal pain Genitourinary: Reports: no symptoms Neurologic/Psychiatric: Reports: no symptoms Endocrine: Reports: no symptoms Hematologic/Lymphatic: Reports: no symptoms Allergies: Coded Allergies: IBUPROFEN (Verified Allergy, Unknown, 08/13/17) Subjective Patient continues to complain of back and abdominal pain. She is in bed with son at bedside. Dr. Allen also d/w patient about MRI results. Has gotten 4 Morphine 4mg and 3 morphine 2mg in the last 24hrs. Requesting a dose at this time. Objective Last 24 Hour Vital Signs Date Time Temp Pulse Resp B/P (MAP) Pulse Ox O2 Delivery O2 Flow Rate FiO2 11/22/19 12:00 98.1 66 18 91/57 (68) 95 11/22/19 09:00 Room Air 11/22/19 08:00 97.3 68 20 116/68 (84) 94 11/22/19 04:00 98.0 71 20 112/68 (83) 95 11/22/19 00:00 98.8 78 20 105/62 (76) 94 11/21/19 21:00 Room Air 11/21/19 20:00 98.5 69 20 102/64 (77) 94 Intake and Output 11/21/19 11/22/19 19:00 07:00 Intake Total 1385 ml 1125 ml Output Total 600 ml Balance 1385 ml 525 ml IV Total 1385 ml 1125 ml Output Urine Total 550 ml Emesis 50 ml # Voids 2 1 Laboratory Tests 11/22/19 05:15: White Blood Count 6.1, Red Blood Count 3.55L, Hemoglobin 11.2L, Hematocrit 32.4L , Mean Corpuscular Volume 91, Mean Corpuscular Hemoglobin 31.5H, Mean Corpuscular Hemoglobin Concent 34.5, Red Cell Distribution Width 10.7L, Platelet Count 143L, Mean Platelet Volume 8.3, Neutrophils (%) (Auto) 66.5, Lymphocytes (%) (Auto) 22.8, Monocytes (%) (Auto) 8.5, Eosinophils (%) (Auto) 1.7, Basophils (%) (Auto) 0.6, Erythrocyte Sedimentation Rate 85H, Sodium Level 141, Potassium Level 4.3, Chloride Level 107, Carbon Dioxide Level 27, Anion Gap 8, Blood Urea Nitrogen 3L, Creatinine 0.8, Estimat Glomerular Filtration Rate > 60, Glucose Level 117H, Calcium Level 7.9L, Total Bilirubin 0.8, Aspartate Amino Transf (AST/SGOT) 92H, Alanine Aminotransferase (ALT/SGPT) 141H , Alkaline Phosphatase 214H, C-Reactive Protein, Quantitative 4.3H, Total Protein 6.1L, Albumin 2.6L, Globulin 3.5, Albumin/Globulin Ratio 0.7L, Amylase Level 62, Lipase 125 Height (Feet): 5 Height (Inches): 4.00 Weight (Pounds): 144 Objective EXAM: MRI MRI L Spine no Contrast HISTORY: Back pain and radiculopathy. Muscle spasm. COMPARISON: No prior studies available for comparison. TECHNIQUE: MR scanning of the lumbar spine includes sagittal T1, T2 and axial T1 and T2 sequences. FINDINGS: There is anatomic alignment. Vertebral bodies are intact without compression deformity. Small Schmorl's node deformities noted at the inferior endplate of L1 and superior endplate of L2. Heterogeneous marrow signal reflects blood and yellow marrow conversion. There is no acute paraspinal soft tissue abnormality seen. L1-L2: There is minimal annular prominence without significant stenosis. L2-L3: There is minimal central annular prominence. Mild right and left lateral bulging approximate 1 to 2 mm without significant stenosis. L3-L4: Right and left lateral bulging are also 1 to 2 mm without significant stenosis. L4-L5: There is broad bulging approximately 2 mm. It is slightly more exaggerated in the right paracentral aspect. There is central thecal sac indentation but AP diameter of the spinal canal is in the normal range. Bilateral facet hypertrophy is present. Combination of eccentric disc and facet disease contribute to [id number] bilateral foraminal narrowing. Moderate narrowing of the right lateral recess also noted. L5-S1: There is minimal annular prominence without significant compromise. Mild bilateral facet hypertrophy noted. Conus medullaris and cauda equina are unremarkable. Vamshi Jung Nov 22, 2019 17:12
--- NOTE | 2019-11-22 19:00 | NUR ---
NURSE NOTES: Not able to apply Bengay at this time d/t medication is not available at this time. Endorsed ANISH Sanchez for new order of Bengay.
--- NOTE | 2019-11-22 19:06 | NUR ---
NURSE NOTES: Received report from ANISH Trejo. Pt is awake, lying semi-tay's; resting. Pt is complaining of 6/10 pain in the lower back radiating to both legs. No signs of acute distress noted aside from the pain. AOx4; able to make needs known. Checked IV site, line, and rate; patent and running. No erythema, bleeding, or infiltration noted. Bed at lowest position. Brakes on. Siderails up x3. Call light within reach. Will continue to monitor.
--- NOTE | 2019-11-22 19:36 | NUR ---
HAND-OFF: Report given to ANISH Sanchez.
[2019-11-22 20:00] VITALS: BP 107/66
[2019-11-22] MEDS: Analgesic Balm 15gm TOPIC SCH ×2 (20:39→21:44)
[2019-11-23] VITALS: BP 104/60
[2019-11-23 04:00] VITALS: BP 111/67
[2019-11-23] MEDS: Piperacillin/Tazobactam 3.375 GM in NS 110 ML IVPB SCH ×2 (05:07→14:17)
--- NOTE | 2019-11-23 07:15 | NUR ---
HAND-OFF: Report given to ANISH Tran. Pt is awake and in stable condition. Plan of care endorsed.
--- NOTE | 2019-11-23 07:47 | NUR ---
NURSE NOTES: Patient awake, alert x4; on room air, no sing of distress and shortness of breath; no sing of chest pain; IV Left-Hand fluid running; patient NPO; side rails up x2, breaks engaged, bed at lowest position, call light within reach; will keep monitoring.
[2019-11-23 08:00] VITALS: BP 126/69
[2019-11-23] MEDS: Pantoprazole Inj IV SCH (08:40)
[2019-11-23] MEDS: Methocarbamol 750mg tab ORAL SCH ×2 (08:40→12:24)
[2019-11-23] MEDS: Lyrica 50mg cap ORAL SCH (08:40)
[2019-11-23] MEDS: Analgesic Balm 15gm TOPIC SCH ×2 (08:41→12:25)
[2019-11-23] MEDS: LORazepam 1mg tab ORAL PRN (08:57)
--- NOTE | 2019-11-23 10:59 | General Progress Note ---
Assessment/Plan Problem List: (1) Diverticulitis of intestine with abscess ICD Codes: K57.80 - Diverticulitis of intestine, part unspecified, with perforation and abscess without bleeding SNOMED: 474331150, 61606516 Qualifiers: Qualified Codes: K57.20 - Diverticulitis of large intestine with perforation and abscess without bleeding (2) Elevated liver enzymes ICD Codes: R74.8 - Abnormal levels of other serum enzymes SNOMED: 698095210 (3) Anxiety ICD Codes: F41.9 - Anxiety disorder, unspecified SNOMED: 15651892 Assessment/Plan: abx ivf pain control has ad recent colonoscopy on clears per surg repeat CT reviewed repeat labs Subjective ROS Limited/Unobtainable: Yes Allergies: Coded Allergies: IBUPROFEN (Verified Allergy, Unknown, 08/13/17) Objective Last 24 Hour Vital Signs Date Time Temp Pulse Resp B/P (MAP) Pulse Ox O2 Delivery O2 Flow Rate FiO2 11/23/19 09:00 Room Air 11/23/19 08:00 98.3 70 20 126/69 (88) 93 11/23/19 04:00 98.2 72 18 111/67 (82) 91 11/23/19 00:00 98.9 64 20 104/60 (75) 90 11/22/19 21:00 Room Air 11/22/19 20:00 99.1 68 18 107/66 (80) 98 11/22/19 16:00 98.1 76 20 122/77 (92) 92 11/22/19 12:00 98.1 66 18 91/57 (68) 95 Intake and Output 11/22/19 11/23/19 19:00 07:00 Intake Total 1327.5 ml Balance 1327.5 ml Intake Oral 120 ml IV Total 1207.5 ml # Voids 3 1 Height (Feet): 5 Height (Inches): 4.00 Weight (Pounds): 144 General Appearance: alert EENT: PERRL/EOMI Neck: supple Cardiovascular: normal rate Respiratory/Chest: decreased breath sounds Abdomen: soft, hypoactive bowel sounds, tender Extremities: non-tender Jaime Cooley MD Nov 23, 2019 10:59
[2019-11-23 12:00] VITALS: BP 131/112
--- NOTE | 2019-11-23 12:42 | Discharge Instructions ---
Discharge Instructions Discharge Instructions Follow up with: dr garza. dr nieto, dr liu Call MD/Return to Hospital if: if fever, nause vomiting, worsening pain Diet: full liquid, low residue/fiber, other - start low residue/fiber after 4 days. no seed food like pop corn , or any seeds For Congestive Heart Failure Reminder Report to your physician any weight gain of 5 pounds or more in one week. Masood Polanco MD Nov 23, 2019 12:42
--- NOTE | 2019-11-23 12:44 | NUR ---
NURSE NOTES: MD Polanco put a discharge order for this patient; I communicated DERIK Jung to get discharge pain medication order; DERIK Jung said his on the way; waiting for order.
--- NOTE | 2019-11-23 13:13 | General Progress Note ---
Assessment/Plan Assessment/Plan: (1) Abdominal pain (2) Diverticulitis (3) Lumbar Radiculopathy- herniated disc (4) Muscle spasm Will be continued on bengay cream, Lidocaine patch, Morphine, Lyrica, Robaxin and Valium We will write an RX for [place] 10/325mg PO 1 tab Q4-6H PRN 20 tabs and narcan nasal spray in anticipation for discharge Was advised to f/u with PMD GI and Infectious disease when discharged home D/w Dr. Allen and he concurred. Subjective Date patient seen: Nov 23, 2019 Time patient seen: 12:30 - pm Constitutional: Reports: weakness HEENT: Reports: no symptoms Cardiovascular: Reports: no symptoms Gastrointestinal/Abdominal: Reports: abdominal pain Genitourinary: Reports: no symptoms Neurologic/Psychiatric: Reports: no symptoms Endocrine: Reports: no symptoms Hematologic/Lymphatic: Reports: no symptoms Allergies: Coded Allergies: IBUPROFEN (Verified Allergy, Unknown, 08/13/17) Subjective Patient still has discomfort and has requested 1 dose of Morphine 4mg and 2 doses of morphine 2mg in the last 24hrs The addition of Bengay and Lidoderm patch has been beneficial. 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 Objective Last 24 Hour Vital Signs Date Time Temp Pulse Resp B/P (MAP) Pulse Ox O2 Delivery O2 Flow Rate FiO2 11/23/19 12:00 99.7 80 20 131/112 (118) 97 11/23/19 09:00 Room Air 11/23/19 08:00 98.3 70 20 126/69 (88) 93 11/23/19 04:00 98.2 72 18 111/67 (82) 91 11/23/19 00:00 98.9 64 20 104/60 (75) 90 11/22/19 21:00 Room Air 11/22/19 20:00 99.1 68 18 107/66 (80) 98 11/22/19 16:00 98.1 76 20 122/77 (92) 92 Intake and Output 11/22/19 11/23/19 19:00 07:00 Intake Total 1327.5 ml 152.5 ml Balance 1327.5 ml 152.5 ml Intake Oral 120 ml IV Total 1207.5 ml 152.5 ml # Voids 3 1 Height (Feet): 5 Height (Inches): 4.00 Weight (Pounds): 144 General Appearance: no apparent distress, alert EENT: PERRL/EOMI, normal ENT inspection Neck: non-tender, normal alignment Cardiovascular: normal rate, regular rhythm Respiratory/Chest: decreased breath sounds Abdomen: tender Extremities: non-tender Edema: no edema noted Arm (L), no edema noted Arm (R), no edema noted Leg (L), no edema noted Leg (R), no edema noted Pedal (L), no edema noted Pedal (R), no edema noted Generalized Neurologic: alert, oriented x 3 Skin: normal pigmentation Objective EXAM: MRI MRI L Spine no Contrast HISTORY: Back pain and radiculopathy. Muscle spasm. COMPARISON: No prior studies available for comparison. TECHNIQUE: MR scanning of the lumbar spine includes sagittal T1, T2 and axial T1 and T2 sequences. FINDINGS: There is anatomic alignment. Vertebral bodies are intact without compression deformity. Small Schmorl's node deformities noted at the inferior endplate of L1 and superior endplate of L2. Heterogeneous marrow signal reflects blood and yellow marrow conversion. There is no acute paraspinal soft tissue abnormality seen. L1-L2: There is minimal annular prominence without significant stenosis. L2-L3: There is minimal central annular prominence. Mild right and left lateral bulging approximate 1 to 2 mm without significant stenosis. L3-L4: Right and left lateral bulging are also 1 to 2 mm without significant stenosis. L4-L5: There is broad bulging approximately 2 mm. It is slightly more exaggerated in the right paracentral aspect. There is central thecal sac indentation but AP diameter of the spinal canal is in the normal range. Bilateral facet hypertrophy is present. Combination of eccentric disc and facet disease contribute to [id number] bilateral foraminal narrowing. Moderate narrowing of the right lateral recess also noted. L5-S1: There is minimal annular prominence without significant compromise. Mild bilateral facet hypertrophy noted. Conus medullaris and cauda equina are unremarkable. aVmshi Jung Nov 23, 2019 13:13
--- NOTE | 2019-11-23 14:08 | Surgery Progress Note ---
Surgery Progress Note Subjective Additional Comments Patient seen and examined bedside. Improved. States pain is improved. No nausea vomiting fever chills. Slowly getting hungry. Started on oral diet. Objective Last 24 Hour Vital Signs Date Time Temp Pulse Resp B/P (MAP) Pulse Ox O2 Delivery O2 Flow Rate FiO2 11/23/19 12:00 99.7 80 20 131/112 (118) 97 11/23/19 09:00 Room Air 11/23/19 08:00 98.3 70 20 126/69 (88) 93 11/23/19 04:00 98.2 72 18 111/67 (82) 91 11/23/19 00:00 98.9 64 20 104/60 (75) 90 11/22/19 21:00 Room Air 11/22/19 20:00 99.1 68 18 107/66 (80) 98 11/22/19 16:00 98.1 76 20 122/77 (92) 92 I&O Intake and Output 11/22/19 11/23/19 19:00 07:00 Intake Total 1327.5 ml 152.5 ml Balance 1327.5 ml 152.5 ml Intake Oral 120 ml IV Total 1207.5 ml 152.5 ml # Voids 3 1 Cardiovascular: RSR Respiratory: clear Abdomen: soft, non-tender, present bowel sounds Extremities: no edema, no tenderness, no cyanosis Plan Problems: (1) Diverticulitis of intestine with abscess Assessment & Plan: 54 F abd pain , chronic back pain, nausea, emesis. LLQ pain 4 days. worsening labs noted CT as below acute diverticulitis. 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 Now with sciatica and leg pain as well which complicate make it difficult for full examination properly. Stat repeat CT abdomen pelvis Discussed with PCP thank you will follow with recs Repeat CT noted. Progression of inflammation but no perforation. Will need longer bowel rest patient is not hungry currently and slowly feeling better. Continue IV antibiotics. Pain management for spinal pain. thank you Abdominal exam improved. Afebrile hemodynamic stable labs noted pain fairly resolved today on examination which is benign left lower quadrant is nontender today. Start oral diet. Transition to oral medications. Discharge planning. Patient really wants to go home and states that she does not feel comfortable staying the hospital much longer as she is feeling mildly depressed and uncomfortable and would prefer to be home soon as possible. ABDOMEN: Liver: Unremarkable Gallbladder and bile ducts: No calcified stones. No ductal dilation. Pancreas: Unremarkable. Spleen: Unremarkable. Adrenals: Unremarkable. Kidneys and ureters: No renal calculi or obstructive changes. Stomach and bowel: Diverticulitis of the distal descending colon with surrounding inflammatory changes. No regular diverticulum measuring approximate 1 cm versus mottled collection with air and debris representing an abscess. No kaushik pneumoperitoneum. PELVIS: Appendix: Unremarkable appendix. Bladder: Unremarkable. Reproductive: Unremarkable. ABDOMEN and PELVIS: Intraperitoneal space: See above. Bones/joints: No acute fracture. Soft tissues: Unremarkable. Vasculature: Unremarkable. No abdominal aortic aneurysm. Lymph nodes: Small mesenteric and retroperitoneal nodes IMPRESSION: Diverticulitis of the distal descending colon with surrounding inflammatory changes. No regular diverticulum measuring approximate 1 cm versus mottled collection with air and debris representing an abscess. No kaushik pneumoperitoneum. Joseph Gregory Nov 23, 2019 14:08
--- NOTE | 2019-11-23 15:56 | NUR ---
NURSE NOTES: I called and talk to patient's , AdarshJose regarding patient discharge; Mr Altamirano said will pick patient after one hour; patient is aware that she is gonna be discharge today and agreed with the discharge;
[2019-11-23 16:00] VITALS: BP 103/67
[2019-11-23 16:02] LABS: BASOPHILS % (AUTO) 0.7 % (0.0-2.0); EOSINOPHILS % (AUTO) 0.8 % (0.0-3.0); HEMATOCRIT 36.4 % (37.0-47.0); HEMOGLOBIN 11.4 G/DL (12.0-16.0); LYMPHOCYTES % (AUTO) 23.3 % (20.0-45.0); MEAN CORPUSCULAR VOLUME 101 FL (80-99); MONOCYTES % (AUTO) 7.4 % (1.0-10.0); NEUTROPHILS % (AUTO) 67.9 % (45.0-75.0); PLATELET COUNT 158 K/UL (150-450); RED BLOOD COUNT 3.62 M/UL (4.20-5.40); RED CELL DISTRIBUTION WIDTH 11.8 % (11.6-14.8); WHITE BLOOD COUNT 6.3 K/UL (4.8-10.8)
--- NOTE | 2019-11-23 16:02 | NUR ---
CASE MANAGEMENT: REVIEW 11/22/19 SI: ACUTE DIVERTICULITIS WITH ABSCESS 99.7 80 20 131/112 97% ROOM AIR LABS PENDING IS:IV ZOSYN TID IV D5 @125ML/HR IV MORPHINE SULFATE Q2HR/PRN IV PROTONIX QD \: 3EMED/SURG UNIT DCP: PATIENT IS FROM HOME PLAN: START ON CLEAR LIQ DIET
[2019-11-23 16:30] LABS: ALANINE AMINOTRANSFERASE 92 U/L (12-78); ALBUMIN 2.7 G/DL (3.4-5.0); ALBUMIN/GLOBULIN RATIO 0.8 (1.0-2.7); ALKALINE PHOSPHATASE 202 U/L (46-116); ANION GAP 9 mmol/L (5-15); ASPARTATE AMINO TRANSFERASE 45 U/L (15-37); BILIRUBIN,TOTAL 0.6 MG/DL (0.2-1.0); BLOOD UREA NITROGEN 3 mg/dL (7-18); CALCIUM 8.2 MG/DL (8.5-10.1); CARBON DIOXIDE 24 MMOL/L (21-32); CHLORIDE 108 MMOL/L (98-107); CREATININE 0.8 MG/DL (0.55-1.30); POTASSIUM 4.1 MMOL/L (3.5-5.1); SODIUM 141 MMOL/L (136-145)
[2019-11-23] MEDS: Mylanta II UD 30ml ORAL PRN (16:46)
--- NOTE | 2019-11-23 17:20 | NUR ---
NURSE NOTES: Patient discharge to home; accompanied by her spouse she left the floor by wheelchaire and vice president of nursing Diana accompanied patient to the parking; patient's IV and name tag removed upon discharge; patient's belonging checked out and patient and discharging nurse signed the belonging list; patient handed over 3 original prescription and comp on file; pateint teaching provided at the bed side regarding medications, when to seek for medical help and diet; patient was stable upon discharge.
--- NOTE | 2019-11-24 12:11 | NUR ---
*-* INSURANCE *-* UPDATED CLINICALS AND REVIEWS FAXED NO DISCHARGE SUMMARY IN THE SYSTEM: [facility] [place] AUTH#[id number] P:[phone] F:[phone]
--- NOTE | 2019-11-27 13:25 | Discharge Summary ---
Discharge Summary Discharge Summary _ DATE OF ADMISSION: 11/19/2019 DATE OF DISCHARGE: 11/23/2019 DISCHARGED BY: Dr Polanco REASON FOR ADMISSION: 54 years old female with past medical history of gastritis, lumbar radiculopathy , herniated disc , presented to emergency department with complaining of lower back pain and lower abdominal cramping for 4 days. According to her son, she was in bed for almost 4 days. Patient reported subjective fever for 1 day. Patient was only able to walk and stand with assistance. She denied trauma or fall. She denied dysuria or hematuria. She denied incontinence of urine or bowel. No urinary retention. Upon evaluation vital signs were stable. Laboratory work-up revealed no leukocytosis ,stable hemoglobin, hematocrit and platelet count. Stable electrolytes and renal parameters. Urinalysis revealed +1 leukocyte esterase, no pyuria. CT of the abdomen pelvis revealed diverticulitis with of the distal descending colon with surrounding inflammatory changes. An abscess. No kaushik pneumoperitoneum In emergency department patient received IV fluids, empiric antibiotic, analgesic , PPI and admitted for further management. CONSULTANTS: ID specialist Dr. Zavala General surgery Dr. Gregory GI specialist Dr. Cooley Pain specialist Dr. Allen [facility]: Patient admitted to medical surgical floor. Patient was kept n.p.o. ; on IV hydration. Patient started on empiric antibiotic as per ID specialist recommendation. Pain management was addressed as per pain specialist recommendation. General surgeon seen and evaluated patient. Repeated CT of the abdomen pelvis revealed evidence of acute diverticulitis of the descending/sigmoid colon junction. Patient noted to have elevated LFT , which were trending down. Lipase and CEA within normal limits. Per surgeon, patient slowly started on diet and was advanced as tolerated. Symptomatic treatment provided. Antiemetic were on board as needed . Patient remained afebrile. Patient was able to tolerate diet. Pain management was addressed as per pain specialist recommendations. MRI of the lumbar spine revealed spondylosis with the most affected level at L4 - L5 where there was right lateral recess stenosis along with bilateral mild to moderate foraminal stenosis. Patient to follow-up as outpatient with neurosurgeon for further recommendation. GI specialist recommended colonoscopy in 2 months after resolution of symptoms. Patient clinically stabilized and was ready for discharge home. Prescription for oral antibiotics to complete the course provided. Outpatient follow-up with primary care provider FINAL DIAGNOSES: Acute diverticulitis with probable abscess Abdominal pain due to the above Lumbar radiculopathy, herniated disc Muscle spasm Elevated liver enzymes History of cholecystectomy Elevated TSH with normal free T4 Spondylosis L4-5 DISCHARGE MEDICATIONS: List of medication was sent with patient DISCHARGE INSTRUCTIONS: Patient was discharged home. Follow-up with a primary care provider in 1 week. I have been assigned to dictate discharge summary for this account. I was not involved in the patient's management. Marce Martines NP Nov 27, 2019 13:25
--- NOTE | 2019-11-27 16:25 | NUR ---
*-* INSURANCE *-* DISCHARGE SUMMARY HAS BEEN FAXED BLUE [facility] AUTH#[id number] P:[phone] F:[phone]
== END 2019-11-23 17:00 | disposition home or self-care (01) | DRG 392 ==
LOC: EMR 15:11 → EDBEDREQ 17:37 → 3E 17:44
DX: K57.20 Diverticulitis of large intestine with perforation and abscess without bleeding (principal); M51.16 Intervertebral disc disorders with radiculopathy, lumbar region; M47.26 Other spondylosis with radiculopathy, lumbar region; Z88.6 Allergy status to analgesic agent; R25.2 Cramp and spasm; F41.9 Anxiety disorder, unspecified; R74.8 Abnormal levels of other serum enzymes; Z90.49 Acquired absence of other specified parts of digestive tract
CPT/HCPCS: 36415; 72148; 74176; 74177; 80048; 80053; 80061; 81003; 82150; 82378; 83036; 83690; 83735; 84100; 84439; 84443; 85007; 85025; 85610; 85651; 85730; 86140; 87081; 96365; 96368; 96375; 99285; J2405